=== PATIENT | female | born 1990 | race Caucasian/White ===

== ENCOUNTER 2018-09-24 17:21 | Inpatient (IN) | payer BC ==
[~2018-09-24] VITALS: Ht 165.1 cm; Wt 96.0 kg
[2018-09-24 18:18] VITALS: Ht 165.1 cm; Wt 96.0 kg
[2018-09-24] MEDS ORDERED: HUM100IN4 SQ (18:24)
[2018-09-24] MEDS ORDERED: METF100010 PO (18:24)
[2018-09-24] MEDS ORDERED: LACTATED RINGER'S 1,000 ML IV ONE (19:00)
[2018-09-24] MEDS: LACTATED RINGER'S 1,000 ML IV SCH (19:26)
[2018-09-24] MEDS ORDERED: AL HYDROX/MG HYDROX/SIMETH 30 ML CUP PO PRN (19:30)
[2018-09-24] MEDS ORDERED: MAGNESIUM SULFATE 4 GM/100 ML 100 ML IV ONE (19:30)
[2018-09-24] MEDS ORDERED: ONDANSETRON 4 MG INJ IV PRN (19:30)
--- NOTE | 2018-09-24 19:37 | HP ---
Date/Time of Note Date/Time of Note DATE: 09/24/18 TIME: 19:32 OB - History Hx of Present Chief Complaint: abdominal pain Estimated Due Date: Nov 12, 2018 : 1 Para: 0 Spontaneous : 0 Therapeutic : 0 Care: Good Care Ultrasounds: Normal mid trimester US Obstetrical Complications: Other (Type II DM on metformin and insulin) Medical Complications: Other (Type II DM) Past Family/Social History * Past Medical, Surgical, Family and Obstetric Histories reviewed from chart. OB Admission Exam Physical Exam Cervical Dilatation: 1cm Effacement: 75% Station: -2 Membranes: Intact Heart Rate: 130's Accelerations: Accelerations Present Decelerations: No Decelerations Varibility: Moderate Contractions on Admission: < 5 Minutes Apart Last 72 hourBlood Glucose Bedside Glucose - 72 Hours Test 09/24/18 19:16 Bedside Glucose 88 mg/dL (70-220) OB Assessment/Plan Reason for admission: labor Plan: Other Other plan: Admit IV magnesium sulfate IM betamethasone Perinatology consult RYANNE MOSS MD September 24, 2018 19:37
[2018-09-24] MEDS ORDERED: DEXTROSE 50% 50 ML SYRINGE IV PRN ×2 (20:00)
[2018-09-24] MEDS ORDERED: GLUCAGON 1 MG INJ IM PRN (20:00)
[2018-09-24] MEDS ORDERED: GLUCOSE GEL 15 GRAM TUBE BUCCAL PRN (20:00)
[2018-09-24] MEDS ORDERED: GLUCOSE GEL 15 GRAM TUBE PO PRN ×2 (20:00)
[2018-09-24] MEDS: MAGNESIUM SULFATE 20 GM/500 ML 500 ML IV SCH (20:18)
[2018-09-24] MEDS: BETAMET NA PHOS/AC(6 MG/ML) 2 ML INJ SYG IM SCH (22:35)
[2018-09-24] MEDS: NPH, HUMAN INSULIN ISOPHANE 3ML VIAL SC SCH (23:32)
[2018-09-25] MEDS: ACETAMINOPHEN 325 MG TAB PO PRN ×3 (00:49→17:02)
[2018-09-25] MEDS: PRENATAL VITAMIN PO SCH (08:24)
[2018-09-25] MEDS: MAGNESIUM SULFATE 20 GM/500 ML 500 ML IV SCH ×2 (08:24→19:38)
[2018-09-25] MEDS: DOCUSATE SODIUM 100 MG CAP PO SCH (08:24)
[2018-09-25] MEDS: metFORMIN 500 MG TAB PO SCH ×2 (08:42→17:47)
[2018-09-25] MEDS: LACTATED RINGER'S 1,000 ML IV SCH ×2 (08:46→22:00)
[2018-09-25] MEDS: INSULIN ASPART [NOVOLOG] 3 ML PEN SC PRN ×2 (14:42→19:41)
--- NOTE | 2018-09-25 15:15 | CONS ---
Assessment/Plan Assessment/Plan Assessment/Plan (Daily) Mom is G1,P0, admitted for PTL and started on Magnesium sulfate, given one dose of betamethasone with second dose to be given tonight. Mom explained about problems related to prematurity at 33 weeks. risk for infection,antibiotic therapy ,RDS ,respiratory support needed , AOP , Feeding problems , Poor nippling, jaundice and risk for neurodevelopmental problems and answered all questions.mom has diabetes, on insulin since last 2months , explained about risk for hypoglycemia and physiologic immaturity with IDM babies. I took 25-30min to evaluate the H/P , clinical course on mom, coordinate care with ancilliary services and dictate consult note, thanks for allowing me to take part in the care of this mom , will follow mom and baby as needed. Consultation Date/Type/Reason Admit Date/Time September 24, 2018 at 19:18 Date of Consultation: September 25, 2018 Type of Consult consult requested by Reason for Consultation labor at 33 1/7 weeks. Date/Time of Note DATE: 09/25/18 TIME: 15:02 Constitutional: no complaints, improved Eyes: no complaints ENT: no complaints Respiratory: no complaints Cardiovascular: no complaints Gastrointestinal: no complaints Genitourinary: no complaints Musculoskeletal: no complaints Skin: no complaints Neurologic: no complaints Endocrine: no complaints Lymphatic: no complaints Psychological: no complaints, nl mood/affect Immunologic: no complaints Past Medical History Home Meds Reported Medications Hum Insulin NPH/Reg Insulin Hm (Humulin 70/30 Kwikpen) 100 Unit/1 Ml Insuln.pen, 6 UNIT SQ QPM 09/24/18 Metformin Hcl* (Metformin Hcl*) 1,000 Mg Tablet, 1000 MG PO WITH BREAKFAST DINNE, #60 TAB 09/24/18 Medications Current Medications Lactated Ringer's 1,000 ml @ 75 mls/hr [id number] IV Last administered on 09/25/18at 08:46; Admin Dose 75 MLS/HR; Start 09/24/18 at 19:26 Magnesium Sulfate 500 ml @ 50 mls/hr Q10H IV Last administered on 09/25/18at 08:24; Admin Dose 50 MLS/HR; Start 09/24/18 at 19:26 Betamethasone Acet/Betameth SodPhos (Celestone Soluspan) 12 mg Q24H IM Last administered on 09/24/18at 22:35; Admin Dose 12 MG; Start 09/24/18 at 19:30; Stop 09/25/18 at 19:31 Prenat Multivit/ [place]/Iron/Folic Ac () 1 tab DAILY PO Last administered on 09/25/18at 08:24; Admin Dose 1 TAB; Start 09/25/18 at 09:00 Docusate Sodium (Colace) 100 mg DAILY PO Last administered on 09/25/18at 08:24; Admin Dose 100 MG; Start 09/25/18 at 09:00 Acetaminophen (Tylenol Tab) 650 mg Q4H PRN PO .PAIN OR TEMP Last administered on 09/25/18at 10:59; Admin Dose 650 MG; Start 09/24/18 at 19:30 Al Hydrox/Mg Hydrox/Simethicone (Mag-Al Plus) 30 ml Q6H PRN PO .GI UPSET; Start 09/24/18 at 19:30 Ondansetron HCl (Zofran Inj) 4 mg Q6H PRN IV NAUSEA/VOMITING; Start 09/24/18 at 19:30 Metformin HCl (Glucophage) 1,000 mg WITH BREAKFAST PO Last administered on 09/25/18at 08:42; Admin Dose 1,000 MG; Start 09/25/18 at 07:35 Metformin HCl (Glucophage) 1,000 mg WITH DINNER PO ; Start 09/25/18 at 17:35 Insulin Human NPH (Humulin N) 6 unit HS SC Last administered on 09/24/18at 23:32; Admin Dose 6 UNIT; Start 09/24/18 at 21:00 Miscellaneous Information 1 ea NOTE XX ; Start 09/24/18 at 20:00 Glucose (Glutose) 15 gm Q15M PRN PO DECREASED GLUCOSE; Start 09/24/18 at 20:00 Glucose (Glutose) 22.5 gm Q15M PRN PO DECREASED GLUCOSE; Start 09/24/18 at 20:00 Dextrose (D50w Syringe) 25 ml Q15M PRN IV DECREASED GLUCOSE; Start 09/24/18 at 20:00 Dextrose (D50w Syringe) 50 ml Q15M PRN IV DECREASED GLUCOSE; Start 09/24/18 at 20:00 Glucagon (Glucagen) 1 mg Q15M PRN IM DECREASED GLUCOSE; Start 09/24/18 at 20:00 Glucose (Glutose) 15 gm Q15M PRN BUCCAL DECREASED GLUCOSE; Start 09/24/18 at 20:00 Insulin Aspart (Novolog Insulin Pen) 161-18,0=6 units 181-200... 2 HOURS AFTER MEALS PRN SC ELEVATED GLUCOSE Last administered on 09/25/18at 14:42; Admin Dose 2 UNIT; Start 09/25/18 at 13:30 Allergies: Coded Allergies: No Known Allergy (Unverified , 09/24/18) Social History Smoking Status: Never smoker Exam/Review of Systems Exam Vitals Intake and Output 09/24/18 09/24/18 09/25/18 1515:00 23:00 07:00 IntakeIntake Total 550 ml 1240 ml OutputOutput Total 1350 ml BalanceBalance 550 ml -110 ml Results Result Diagram: 09/24/18192209/24/181922 Results 24hrs Laboratory Tests Test 09/24/18 19:16 09/24/18 19:23 09/24/18 23:23 09/25/18 00:57 Bedside Glucose 88 123 White Blood Count 6.7 Red Blood Count 4.12 L Hemoglobin 12.0 Hematocrit 36.3 L Mean Corpuscular 88.1 Volume Mean Corpuscular 29.1 Hemoglobin Mean Corpuscular 33.1 Hemoglobin Concent Red Cell 13.6 Distribution Width Platelet Count 149 Mean Platelet Volume 14.0 H Immature 0.700 H Granulocytes % Neutrophils % 64.6 Lymphocytes % 29.4 Monocytes % 4.9 Eosinophils % 0.1 Basophils % 0.3 Nucleated Red Blood 0.0 Cells % Immature 0.050 H Granulocytes # Neutrophils # 4.3 Lymphocytes # 2.0 Monocytes # 0.3 Eosinophils # 0.0 Basophils # 0.0 Nucleated Red Blood 0.0 Cells # Prothrombin Time 12.6 Prothrombin Time 1.0 Ratio INR International 0.93 Normalized Ratio Activated 27.6 Partial Thromboplast Time Urine Color YELLOW Urine Clarity CLEAR Urine pH 6.0 Urine Specific 1.024 [place] Urine Ketones 1+ H Urine Nitrite NEGATIVE Urine Bilirubin NEGATIVE Urine Urobilinogen NEGATIVE Urine Leukocyte NEGATIVE Esterase Urine Hemoglobin NEGATIVE Urine Glucose 1+ H Urine Total Protein NEGATIVE Sodium Level 137 Potassium Level 3.9 Chloride Level 108 Carbon Dioxide Level 18 L Anion Gap 11 Blood Urea Nitrogen 9 Creatinine 0.47 Est Glomerular > 60 Filtrat Rate mL/min Glucose Level 84 Calcium Level 9.6 Total Bilirubin 0.5 Direct Bilirubin 0.00 Indirect Bilirubin 0.5 Aspartate Amino 30 Transf (AST/SGOT) Alanine 42 Aminotransferase (AL T/SGPT) Alkaline Phosphatase 151 H Total Protein 7.5 Albumin 3.8 Globulin 3.70 H Albumin/Globulin 1.02 Ratio Magnesium Level 4.5 H Test 09/25/18 05:39 09/25/18 08:25 09/25/18 10:42 09/25/18 12:07 Magnesium Level 4.5 H 4.9 H Bedside Glucose 135 149 Test 09/25/18 14:35 Bedside Glucose 129 Medications Medication Current Medications Lactated Ringer's 1,000 ml @ 75 mls/hr [id number] IV Last administered on 09/25/18 08:46; Admin Dose 75 MLS/HR; Start 09/24/18 at 19:26 Magnesium Sulfate 500 ml @ 50 mls/hr Q10H IV Last administered on 09/25/18 08:24; Admin Dose 50 MLS/HR; Start 09/24/18 at 19:26 Betamethasone Acet/Betameth SodPhos (Celestone Soluspan) 12 mg Q24H IM Last administered on 09/24/18 22:35; Admin Dose 12 MG; Start 09/24/18 at 19:30; Stop 09/25/18 at 19:31 Prenat Multivit/ Skates Operator/Iron/Folic Ac () 1 tab DAILY PO Last administered on 09/25/18 08:24; Admin Dose 1 TAB; Start 09/25/18 at 09:00 Docusate Sodium (Colace) 100 mg DAILY PO Last administered on 09/25/18 08:24; Admin Dose 100 MG; Start 09/25/18 at 09:00 Acetaminophen (Tylenol Tab) 650 mg Q4H PRN PO .PAIN OR TEMP Last administered on 09/25/18 10:59; Admin Dose 650 MG; Start 09/24/18 at 19:30 Al Hydrox/Mg Hydrox/Simethicone (Mag-Al Plus) 30 ml Q6H PRN PO .GI UPSET; Start 09/24/18 at 19:30 Ondansetron HCl (Zofran Inj) 4 mg Q6H PRN IV NAUSEA/VOMITING; Start 09/24/18 at 19:30 Metformin HCl (Glucophage) 1,000 mg WITH BREAKFAST PO Last administered on 09/25/18at 08:42; Admin Dose 1,000 MG; Start 09/25/18 at 07:35 Metformin HCl (Glucophage) 1,000 mg WITH DINNER PO ; Start 09/25/18 at 17:35 Insulin Human NPH (Humulin N) 6 unit HS SC Last administered on 09/24/18at 23:32; Admin Dose 6 UNIT; Start 09/24/18 at 21:00 Miscellaneous Information 1 ea NOTE XX ; Start 09/24/18 at 20:00 Glucose (Glutose) 15 gm Q15M PRN PO DECREASED GLUCOSE; Start 09/24/18 at 20:00 Glucose (Glutose) 22.5 gm Q15M PRN PO DECREASED GLUCOSE; Start 09/24/18 at 20:00 Dextrose (D50w Syringe) 25 ml Q15M PRN IV DECREASED GLUCOSE; Start 09/24/18 at 20:00 Dextrose (D50w Syringe) 50 ml Q15M PRN IV DECREASED GLUCOSE; Start 09/24/18 at 20:00 Glucagon (Glucagen) 1 mg Q15M PRN IM DECREASED GLUCOSE; Start 09/24/18 at 20:00 Glucose (Glutose) 15 gm Q15M PRN BUCCAL DECREASED GLUCOSE; Start 09/24/18 at 20:00 Insulin Aspart (Novolog Insulin Pen) 161-18,0=6 units 181-200... 2 HOURS AFTER MEALS PRN SC ELEVATED GLUCOSE Last administered on 09/25/18at 14:42; Admin Dose 2 UNIT; Start 09/25/18 at 13:30 KERI ROSS MD September 25, 2018 15:15
--- NOTE | 2018-09-25 18:54 | RADRPT ---
Vent Rate: 80 bpm RR Interval: 0 msec FL Interval: 134 msec QRS Duration: 82 msec QT Interval: 384 msec QTC Interval: 442 msec P-R-T [place]: -3 - 93 - 22 degrees Normal sinus rhythm Rightward axis Borderline ECG Electronically Signed By: Dawit Cornejo
[2018-09-25] MEDS: NPH, HUMAN INSULIN ISOPHANE 3ML VIAL SC SCH (22:11)
[2018-09-25] MEDS: BETAMET NA PHOS/AC(6 MG/ML) 2 ML INJ SYG IM SCH (22:15)
--- NOTE | 2018-09-25 22:56 | QN ---
Documentation Comment 27-year-old 1 para 0 at 33 weeks and 1 day of gestation with estimated date of delivery November 12, 2018 admitted for labor Patient is receiving magnesium sulfate for prevention of labor and betamethasone for lung maturity Patient has history of type 2 diabetes on insulin and metformin Vital signs stable heart rate tracing category 1 [place] none Hematology - 72 Hrs Test 09/24/18 19:23 Hematocrit 36.3 % (37.0-47.0) L Hemoglobin 12.0 g/dl (12.0-16.0) Mean Corpuscular Hemoglobin 29.1 pg (29.0-33.0) Mean Corpuscular Hemoglobin Concent 33.1 g/dl (32.0-37.0) Mean Corpuscular Volume 88.1 fl (82.0-101.0) Mean Platelet Volume 14.0 fl (7.4-10.4) H Platelet Count 149 10^3/UL (140-415) Red Blood Count 4.12 10^6/ul (4.20-5.40) L Red Cell Distribution Width 13.6 % (11.5-14.5) White Blood Count 6.7 10^3/ul (4.8-10.8) Chemistry Test 09/24/18 19:16 09/24/18 19:23 09/24/18 23:23 09/25/18 00:57 Bedside 88 123 Glucose mg/dL (70-220) mg/dL (70-220) Sodium Level 137 mmol/L (135-14 4) Potassium 3.9 Level mmol/L (3.5-5. 1) Chloride Level 108 mmol/L (97-110 ) Carbon Dioxide 18 Level mmol/L (21-31) L Anion Gap 11 (5-13) Blood Urea 9 mg/dl Nitrogen (7-20) Creatinine 0.47 mg/dl (0.44-1. 00) Est Glomerular > 60 Filtrat mL/min (>60) Rate mL/min Glucose Level 84 mg/dl (70-220) Calcium Level 9.6 mg/dl (8.4-10. 2) Total 0.5 Bilirubin mg/dl (0.2-1.3 ) Direct 0.00 Bilirubin mg/dl (0.00-0. 20) Indirect 0.5 Bilirubin mg/dl (0-1.1) Aspartate Amino 30 Transf (AST/SGO IU/L (15-46) T) Alanine 42 Aminotransferas IU/L (13-69) e (ALT/SGPT) Alkaline 151 Phosphatase IU/L (42-121) H Total Protein 7.5 g/dl (6.1-8.1) Albumin 3.8 g/dl (3.3-4.9) Globulin 3.70 g/dl (1.3-3.2) H Albumin/Globuli 1.02 n Ratio Magnesium 4.5 Level mg/dl (1.7-2.5 ) H Test 09/25/18 05:39 09/25/18 08:25 09/25/18 10:42 09/25/18 12:07 Magnesium 4.5 4.9 Level mg/dl (1.7-2.5) mg/dl (1.7-2.5 H ) H Bedside 135 149 Glucose mg/dL (70-220) mg/dL (70-220) Test 09/25/18 14:35 09/25/18 17:49 09/25/18 19:34 09/25/18 22:05 Bedside 129 155 148 Glucose mg/dL (70-220) mg/dL (70-220) mg/dL (70-220) Magnesium 4.7 Level mg/dl (1.7-2.5 ) H PROCEDURE: Biophysical profile CLINICAL INDICATION: distress. Fall. Pain. TECHNIQUE: Color and taylor-scale ultrasound images of an intrauterine gestation were obtained. COMPARISON: None FINDINGS: position: Cephalic. heart rate: 146 bpm. Placenta location: Anterior with a grade of 1. Previa: None. Abruption: None. Cervix: Closed, measuring 1.0 cm in length. ABDULKADIR: 18.0 cm. movement 2/2. tone 2/2. breathing movement 2/2. Qualitative AFV 2/2 Total biophysical profile 12/10 IMPRESSION: 12/10 biophysical profile. Short cervix measuring 1.0 cm in length. RPTAT: AA .Giovani Ulloa MD, Date Time Electronically viewed and signed by .Giovani Ulloa MD, MD on 09/24/2018 19:57 .P/ CC: RYANNE MOSS MD [phone] PROCEDURE: US OB CLINICAL INDICATION: . Evaluate size and dates. Fall. Pain. TECHNIQUE: Multiple transabdominal sonographic images of the pelvis and gravid uterus were obtained. The images were reviewed on a PACS workstation. COMPARISON: September 22, 2018. FINDINGS: Cervix: Obscured. Gestation: Single live intrauterine gestation. Cardiac activity: 146 beats per minute. Presentation: Cephalic. Placenta: Location: Anterior. Appearance: No abruption. Measurements: BPD = not measured due to head engagement in the lower uterine segment. HC = not measured due to head engagement in the lower uterine segment. AC = 32.1 cm, 36 weeks 0 days FL = 6.4 cm, 33 weeks 0 days Gestational Age: AUA estimated gestational age: 34 weeks 4 days LMP estimated gestational age: 33 weeks 0 days AUA estimated date of delivery: November 01, 2018 The EFW = 2597 g, 94.4 %ile based on LMP age. IMPRESSION: 1. Single live intrauterine gestation of 34 weeks 4 days by ultrasound criteria. 2. Estimated date of delivery of November 01, 2018. 3. Head measurements not performed due to head engagement in the lower uterine segment. RPTAT: AA .Giovani Ulloa MD, MD Date Time Electronically viewed and signed by .Giovani Ulloa MD, MD on 09/24/2018 19:55 .P/ CC: RYANNE MOSS MD [phone] Assessment and plan Continue with present management Perinatology consultation FAREED WILLIAMSON MD September 25, 2018 22:56
[2018-09-26] MEDS: MAGNESIUM SULFATE 20 GM/500 ML 500 ML IV SCH (06:20)
[2018-09-26] MEDS: DOCUSATE SODIUM 100 MG CAP PO SCH (09:06)
[2018-09-26] MEDS: PRENATAL VITAMIN PO SCH (09:06)
[2018-09-26] MEDS: metFORMIN 500 MG TAB PO SCH ×2 (09:39→17:13)
[2018-09-26] MEDS: LACTATED RINGER'S 1,000 ML IV SCH ×2 (10:48→21:04)
[2018-09-26] MEDS: INSULIN ASPART [NOVOLOG] 3 ML PEN SC PRN ×3 (12:00→19:33)
--- NOTE | 2018-09-26 17:07 | QN ---
Documentation Comment No complaint Afebrile VSS Strip Reactive D/C magnesium sulfate Monitor for contractions. RYANNE MOSS MD September 26, 2018 17:06
[2018-09-26] MEDS: NPH, HUMAN INSULIN ISOPHANE 3ML VIAL SC SCH (21:53)
[2018-09-27] MEDS: LACTATED RINGER'S 1,000 ML IV SCH (04:16)
[2018-09-27] MEDS: metFORMIN 500 MG TAB PO SCH (07:48)
[2018-09-27] MEDS: PRENATAL VITAMIN PO SCH (07:48)
[2018-09-27] MEDS: DOCUSATE SODIUM 100 MG CAP PO SCH (07:48)
[2018-09-27] MEDS: INSULIN ASPART [NOVOLOG] 3 ML PEN SC PRN (09:50)
[2018-09-27] MEDS ORDERED: NIFEdipine 10 MG CAP PO SCH (12:00)
--- NOTE | 2018-09-27 14:29 | DS ---
Date/Time of Note Date/Time of Note DATE: 09/27/18 TIME: 14:28 Obstetrical Discharge Record Final Diagnosis Final Diagnosis: not delivered Other Final Diagnosis Threatened labor Complications Tocolytics: Magnesium Sulfate Condition on Discharge Physical Assessment Voiding: Yes Bowel Movement: Yes Calf Tenderness: No Patient Condition: Stable RYANNE MOSS MD September 27, 2018 14:29
== END 2018-09-27 15:10 | disposition home or self-care (01) | DRG 832 ==
LOC: OBT 17:21 → L-D 17:22 → OBT 19:18 → L-D 19:18 → PP1 21:13 → L-D 09-25 03:37 → PP1 09-27 10:30
PROVIDERS: ADMIT Obstetrics & Gynecology; ATTEND Obstetrics & Gynecology
PROC: 4A1HXCZ Monitoring of Products of Conception, Cardiac Rate, External Approach (ICD-10-PCS; principal; 2018-09-24)
DX: O60.03 Preterm labor without delivery, third trimester (principal); O24.113 Pre-existing type 2 diabetes mellitus, in pregnancy, third trimester; Z3A.33 33 weeks gestation of pregnancy; E11.9 Type 2 diabetes mellitus without complications; Z79.4 Long term (current) use of insulin
CPT/HCPCS: 76815; 76817; 76818; 80053; 81003; 82962; 83735; 85025; 85610; 85730; 86592; 86850; 86900; 86901; 93005; G0463; J0702; J1815; J3475; J7120

== ENCOUNTER 2018-10-06 05:49 | Inpatient (IN) | payer BC ==
[~2018-10-06] VITALS: Ht 165.1 cm; Wt 97.1 kg
[~2018-10-06 05:49] MED LIST: HUM100IN4 SQ; METF100010 PO
[2018-10-06 05:52] VITALS: Ht 165.1 cm; Wt 97.1 kg
[2018-10-06] MEDS ORDERED: PREN1TAB13 PO (06:09)
[2018-10-06] MEDS ORDERED: PRO20 PO (06:09)
--- NOTE | 2018-10-06 06:45 | TRIAGE ---
OB Triage Datetime Report Generated by CPN: 10/06/2018 06:44 Datetime: 10/06/2018 06:30 Vaginal Exam Dilatation (cms): 2.0 Effacement (%): 80 Station: -2 Exam By: Torres WALDEN Membrane Status: Intact Membranes Ruptured Date/Time: 10/06/2018 03:30 Membranes Rupture Method: Spontaneous Amniotic Fluid Color: Clear Amniotic Fluid Amount: Large Amniotic Fluid Odor: Normal Vaginal Bleeding: None Pool: Positive Nitrazine: Positive Cervix, Consistency: Soft Cervix, Position: Posterior Datetime: 10/06/2018 06:02 Stage of : OB Triage Maternal Assessment Level of Consciousness: Fully Conscious DTR's/Clonus: DTRs 2+; No Clonus Headache: Denies Blurred Vision: No Respiratory Effort: Unlabored; Regular Rhythm; Equal Expansion Breath Sounds, Left: Clear and Equal Breath Sounds, Right: Clear and Equal Nausea/Vomiting: Denies RUQ Epigastric Pain: Denies Lower Extremities Edema: None Degree: None Upper Extremities Edema: None Degree: None Facial Edema: None Temperature Route: Oral Fall Risk Assessment History of Falling: (0) No Secondary Diagnosis: (0) No Ambulatory Aid: (0) Bedrest/Nurse Assist IV Therapy: (0) No Gait: (0) Normal/Bedrest/Immobile Mental Status: (0) Oriented to Own Ability Fall Score: 0 Fall Risk Score Definition: No Risk: No action required Pain Assessment Pain Scale: 8 Pain Presence: Intermittent Pain Type: Contraction Pain Location: Abdomen Pain Relief Measures: Comfort Measures Datetime: 10/06/2018 06:00 EGA: 34.5 Monitor Mode: External Contraction Comments: APPLIED Monitor Mode: External US Comments: APPLIED Datetime: 10/06/2018 05:54 Time of Arrival: 10/06/2018 05:45 EGA: 34.5 Arrived By: Wheelchair Arrived From: Home Chief Complaint: CONTRACTIONS LEAKING @0330 Movement: Present Contractions: Regular Time Contractions Began: 10/06/2018 03:30 Contractions: 3-6 Rupture of Membranes: Ruptured Vaginal Bleeding: None Vaginal Discharge: Present Recent Sexual Intercouse: Denies Abdominal Trauma: Not Applicable Patient Complaints: Contractions; Other Time Provider Notified: 10/06/2018 06:31 Provider Notified: DR. MOSS Initial Plan: EFM, CALL OB Datetime: 09/27/2018 13:58 Labor Evaluation Frequency: irregular Monitor Mode: External Quality: Mild Contraction Comments: dr. moss aware of uc's and had rvwd strip. pt. denies uc's at this time, v e unchanged, and pt. on ptl precautions Heart Rate FHR Baseline Rate: 135 Monitor Mode: External US Variability: Moderate 6-25 bpm Accelerations: 15X15 Decelerations: None Datetime: 09/27/2018 13:44 Maternal Assessment Level of Consciousness: Fully Conscious Headache: Denies Blurred Vision: No Respiratory Effort: Unlabored Nausea/Vomiting: Denies Exam By: dr. moss Datetime: 09/27/2018 13:23 Resting Tone Dawn: Relaxed Datetime: 09/27/2018 12:50 Maternal Assessment Level of Consciousness: Fully Conscious Headache: Denies Blurred Vision: No Respiratory Effort: Unlabored Nausea/Vomiting: Denies RUQ Epigastric Pain: Denies Resting Tone Dawn: Relaxed Contraction Comments: pt. states decrease in frequency of uc's Pain Presence: None/Denies Datetime: 09/27/2018 11:56 Stage of : Antepartum Maternal Assessment Level of Consciousness: Fully Conscious Headache: Denies Nausea/Vomiting: Denies RUQ Epigastric Pain: Denies Temperature Route: Oral Quality: Mild Resting Tone Dawn: Relaxed Contraction Comments: order rcvd. for procardia Pain Assessment Pain Scale: 1 Pain Presence: Intermittent Pain Type: Contraction Pain Location: Abdomen; Back Pain Relief Measures: Comfort Measures Membrane Status: Intact Vaginal Bleeding: None Datetime: 09/27/2018 10:21 Monitor Mode: External Quality: Mild Resting Tone Dawn: Relaxed Datetime: 09/27/2018 10:20 Labor Evaluation Frequency: 2-7 Monitor Mode: External Duration (sec)2399: 60-120 Quality: Mild Pattern: Normal: <= 5 Contractions in 10 Minutes Resting Tone Dawn: Relaxed Heart Rate FHR Baseline Rate: 140 Monitor Mode: External US FHR Baseline Changes: No Baseline Change Variability: Moderate 6-25 bpm Accelerations: 15X15 Decelerations: None Category: Category I Pain Presence: None/Denies Pain Assessment Comments: Pt denies feeling any pain or pressure with UC Datetime: 09/27/2018 10:17 Pain Assessment Pain Scale: 1 Pain Presence: Intermittent Pain Type: Contraction Pain Location: Abdomen; Back Pain Relief Measures: Comfort Measures Datetime: 09/27/2018 09:30 Monitor Mode: External Quality: Mild Pattern: Normal: <= 5 Contractions in 10 Minutes Resting Tone Dawn: Relaxed Heart Rate FHR Baseline Rate: 140 Monitor Mode: External US FHR Baseline Changes: No Baseline Change Variability: Moderate 6-25 bpm Accelerations: 15X15 Decelerations: None Category: Category I Pain Assessment Comments: Pt declines feeling any pain or pressure with UC Datetime: 09/27/2018 08:30 Labor Evaluation Frequency: 2-7 Monitor Mode: External Duration (sec)2399: 30-80 Quality: Mild Pattern: Normal: <= 5 Contractions in 10 Minutes Resting Tone Dawn: Relaxed Heart Rate FHR Baseline Rate: 135 Monitor Mode: External US FHR Baseline Changes: No Baseline Change Variability: Moderate 6-25 bpm Accelerations: 15X15 Decelerations: None Category: Category I Pain Presence: None/Denies Pain Assessment Comments: Pt denies feeling any pain or pressure with UC Datetime: 09/27/2018 07:40 Assessment Type: Ongoing Assessment Maternal Assessment Level of Consciousness: Fully Conscious DTR's/Clonus: DTRs 2+; No Clonus Headache: Denies Blurred Vision: No Respiratory Effort: Unlabored; Regular Rhythm; Equal Expansion Breath Sounds, Left: Clear and Equal Breath Sounds, Right: Clear and Equal Nausea/Vomiting: Denies RUQ Epigastric Pain: Denies Lower Extremities Edema: Bilateral Lower Extremities Degree: Trace Upper Extremities Edema: None Degree: None Facial Edema: None Fall Risk Assessment History of Falling: (0) No Secondary Diagnosis: (0) No Ambulatory Aid: (0) Bedrest/Nurse Assist IV Therapy: (20) Yes Gait: (0) Normal/Bedrest/Immobile Mental Status: (0) Oriented to Own Ability Fall Score: 20 Fall Risk Score Definition: No Risk: No action required Labor Evaluation Frequency: 2-5 Monitor Mode: External Duration (sec)2399: 60-80 Quality: Mild Pattern: Normal: <= 5 Contractions in 10 Minutes Resting Tone Dawn: Relaxed Heart Rate FHR Baseline Rate: 130 Monitor Mode: External US FHR Baseline Changes: No Baseline Change Variability: Moderate 6-25 bpm Accelerations: 15X15 Decelerations: None Category: Category I Pain Presence: None/Denies Pain Assessment Comments: Pt denies feeling any pain or pressure with UC Datetime: 09/27/2018 07:00 Stage of : Antepartum Labor Evaluation Frequency: irregular Monitor Mode: External Quality: Mild Pattern: Normal: <= 5 Contractions in 10 Minutes Resting Tone Dawn: Relaxed Heart Rate FHR Baseline Rate: 135 Monitor Mode: External US Variability: Moderate 6-25 bpm Accelerations: 15X15 Decelerations: None Category: Category I Datetime: 09/27/2018 06:48 Monitor Mode: External Monitor Mode: External US Datetime: 09/27/2018 06:00 Stage of : Antepartum Labor Evaluation Frequency: irregular Monitor Mode: External Quality: Mild Pattern: Normal: <= 5 Contractions in 10 Minutes Resting Tone Dawn: Relaxed Heart Rate FHR Baseline Rate: 135 Monitor Mode: External US Variability: Moderate 6-25 bpm Accelerations: 15X15 Decelerations: None Category: Category I Datetime: 09/27/2018 05:00 Stage of : Antepartum Labor Evaluation Frequency: irregular Monitor Mode: External Quality: Mild Pattern: Normal: <= 5 Contractions in 10 Minutes Resting Tone Dawn: Relaxed Heart Rate FHR Baseline Rate: 130 Monitor Mode: External US Variability: Moderate 6-25 bpm Accelerations: 15X15 Decelerations: None Category: Category I Comments: occassional loss of contact Datetime: 09/27/2018 04:50 Monitor Mode: External Monitor Mode: External US Datetime: 09/27/2018 04:36 Monitor Mode: External Monitor Mode: External US Datetime: 09/27/2018 04:00 Stage of : Antepartum Labor Evaluation Frequency: irregular Monitor Mode: External Quality: Mild Pattern: Normal: <= 5 Contractions in 10 Minutes Resting Tone Dawn: Relaxed Heart Rate FHR Baseline Rate: 140 Monitor Mode: External US Variability: Moderate 6-25 bpm Accelerations: 15X15 Decelerations: None Category: Category I Datetime: 09/27/2018 03:00 Stage of : Antepartum Labor Evaluation Frequency: irregular Monitor Mode: External Quality: Mild Pattern: Normal: <= 5 Contractions in 10 Minutes Resting Tone Dawn: Relaxed Contraction Comments: occassional loss of contact Heart Rate FHR Baseline Rate: 140 Monitor Mode: External US Variability: Moderate 6-25 bpm Accelerations: 15X15 Decelerations: None Category: Category I Datetime: 09/27/2018 02:56 Monitor Mode: External Monitor Mode: External US Datetime: 09/27/2018 02:23 Temperature Route: Oral Monitor Mode: External Monitor Mode: External US Datetime: 09/27/2018 02:00 Stage of : Antepartum Labor Evaluation Frequency: irregular Monitor Mode: External Quality: Mild Pattern: Normal: <= 5 Contractions in 10 Minutes Resting Tone Dawn: Relaxed Heart Rate FHR Baseline Rate: 140 Monitor Mode: External US Variability: Moderate 6-25 bpm Accelerations: 15X15 Decelerations: None Category: Category I Datetime: 09/27/2018 01:00 Stage of : Antepartum Labor Evaluation Frequency: irregular Monitor Mode: External Quality: Mild Pattern: Normal: <= 5 Contractions in 10 Minutes Resting Tone Dawn: Relaxed Heart Rate FHR Baseline Rate: 140 Monitor Mode: External US Variability: Moderate 6-25 bpm Accelerations: 15X15 Decelerations: Variable Category: Category II Datetime: 09/27/2018 00:00 Stage of : Antepartum Labor Evaluation Frequency: irregular Monitor Mode: External Quality: Mild Pattern: Normal: <= 5 Contractions in 10 Minutes Resting Tone Dawn: Relaxed Heart Rate FHR Baseline Rate: 140 Monitor Mode: External US Variability: Moderate 6-25 bpm Accelerations: 15X15 Decelerations: None Category: Category I Datetime: 09/26/2018 23:00 Stage of : Antepartum Labor Evaluation Frequency: irregular Monitor Mode: External Quality: Mild Pattern: Normal: <= 5 Contractions in 10 Minutes Resting Tone Dawn: Relaxed Heart Rate FHR Baseline Rate: 135 Monitor Mode: External US Variability: Moderate 6-25 bpm Accelerations: 15X15 Decelerations: None Category: Category I Datetime: 09/26/2018 22:46 Stage of : Antepartum Temperature Route: Oral Datetime: 09/26/2018 22:00 Stage of : Antepartum Labor Evaluation Frequency: irregular Monitor Mode: External Quality: Mild Pattern: Normal: <= 5 Contractions in 10 Minutes Resting Tone Dawn: Relaxed Heart Rate FHR Baseline Rate: 145 Monitor Mode: External US Variability: Moderate 6-25 bpm Accelerations: 10X10 Decelerations: None Category: Category I Datetime: 09/26/2018 21:49 Bedside Blood Glucose: 136 Datetime: 09/26/2018 21:00 Monitor Mode: External Monitor Mode: External US Datetime: 09/26/2018 20:30 Stage of : Antepartum Labor Evaluation Frequency: 0 Monitor Mode: External Pattern: Normal: <= 5 Contractions in 10 Minutes Resting Tone Dawn: Relaxed Heart Rate FHR Baseline Rate: 145 Monitor Mode: External US Variability: Moderate 6-25 bpm Accelerations: None Decelerations: None Category: Category I Comments: occassional loss of contact Pain Presence: None/Denies Datetime: 09/26/2018 19:50 Stage of : Antepartum Labor Evaluation Frequency: 0 Monitor Mode: External Pattern: Normal: <= 5 Contractions in 10 Minutes Resting Tone Dawn: Relaxed Heart Rate FHR Baseline Rate: 140 Monitor Mode: External US Variability: Moderate 6-25 bpm Accelerations: 15X15 Decelerations: None Category: Category I Comments: occassional loss of contact Pain Presence: None/Denies Datetime: 09/26/2018 19:37 Stage of : Antepartum Temperature Route: Oral Datetime: 09/26/2018 19:25 Stage of : Antepartum Bedside Blood Glucose: 209 (Annotations: repeated blood glucose: 209. @1933: Novolog sliding scale 10 units given 2hrs pp ) Datetime: 09/26/2018 19:20 Stage of : Antepartum Datetime: 09/26/2018 19:00 Monitor Mode: External Resting Tone Dawn: Relaxed Heart Rate FHR Baseline Rate: 135 Monitor Mode: External US FHR Baseline Changes: No Baseline Change Variability: Moderate 6-25 bpm Accelerations: 15X15 Decelerations: None Category: Category I Pain Presence: None/Denies Datetime: 09/26/2018 18:00 Monitor Mode: External Resting Tone Dawn: Relaxed Heart Rate FHR Baseline Rate: 135 Monitor Mode: External US FHR Baseline Changes: No Baseline Change Variability: Minimal - Undetectable to <=5 bpm Accelerations: 15X15 Decelerations: None Category: Category II Pain Presence: None/Denies Datetime: 09/26/2018 17:00 Monitor Mode: External Resting Tone Dawn: Relaxed Heart Rate FHR Baseline Rate: 130 Monitor Mode: External US FHR Baseline Changes: No Baseline Change Variability: Minimal - Undetectable to <=5 bpm Accelerations: 15X15 Decelerations: None Category: Category II Pain Presence: None/Denies Datetime: 09/26/2018 16:00 Monitor Mode: External Resting Tone Dawn: Relaxed Heart Rate FHR Baseline Rate: 120 Monitor Mode: External US FHR Baseline Changes: No Baseline Change Variability: Moderate 6-25 bpm Accelerations: 15X15 Decelerations: None Category: Category I Pain Presence: None/Denies Datetime: 09/26/2018 15:00 Monitor Mode: External Resting Tone Dawn: Relaxed Heart Rate FHR Baseline Rate: 120 Monitor Mode: External US FHR Baseline Changes: No Baseline Change Variability: Minimal - Undetectable to <=5 bpm Accelerations: 15X15 Decelerations: None Category: Category II Pain Presence: None/Denies Datetime: 09/26/2018 14:01 DTR's/Clonus: DTRs 2+ Monitor Mode: External Resting Tone Dawn: Relaxed Heart Rate FHR Baseline Rate: 135 Monitor Mode: External US FHR Baseline Changes: No Baseline Change Variability: Moderate 6-25 bpm Accelerations: 15X15 Decelerations: None Category: Category I Pain Presence: None/Denies Datetime: 09/26/2018 13:07 Monitor Mode: External Resting Tone Dawn: Relaxed Heart Rate FHR Baseline Rate: 135 Monitor Mode: External US FHR Baseline Changes: No Baseline Change Variability: Minimal - Undetectable to <=5 bpm Accelerations: 15X15 Decelerations: None Category: Category II Pain Presence: None/Denies Datetime: 09/26/2018 12:02 DTR's/Clonus: DTRs 2+ Breath Sounds, Left: Clear and Equal Breath Sounds, Right: Clear and Equal Labor Evaluation Frequency: x3 UC noted this hour Monitor Mode: External Duration (sec)2399: 60-80 Quality: Mild Pattern: Normal: <= 5 Contractions in 10 Minutes Resting Tone Dawn: Relaxed Heart Rate FHR Baseline Rate: 130 Monitor Mode: External US FHR Baseline Changes: No Baseline Change Variability: Minimal - Undetectable to <=5 bpm Accelerations: 15X15 Decelerations: None Category: Category II Pain Presence: None/Denies Datetime: 09/26/2018 11:00 Monitor Mode: External Resting Tone Dawn: Relaxed Heart Rate FHR Baseline Rate: 130 Monitor Mode: External US FHR Baseline Changes: No Baseline Change Variability: Minimal - Undetectable to <=5 bpm Accelerations: 15X15 Decelerations: None Category: Category II Pain Presence: None/Denies Datetime: 09/26/2018 10:00 DTR's/Clonus: DTRs 2+ Labor Evaluation Frequency: x2 UC noted this hour Monitor Mode: External Duration (sec)2399: 60-90 Quality: Mild Pattern: Normal: <= 5 Contractions in 10 Minutes Resting Tone Dawn: Relaxed Heart Rate FHR Baseline Rate: 130 Monitor Mode: External US FHR Baseline Changes: No Baseline Change Variability: Minimal - Undetectable to <=5 bpm Accelerations: 15X15 Decelerations: None Category: Category II Pain Presence: None/Denies Datetime: 09/26/2018 09:01 Labor Evaluation Frequency: X1 UC noted this hour Monitor Mode: External Duration (sec)2399: 90 Resting Tone Dawn: Relaxed Heart Rate FHR Baseline Rate: 125 Monitor Mode: External US FHR Baseline Changes: No Baseline Change Variability: Minimal - Undetectable to <=5 bpm Accelerations: 15X15 Decelerations: None Category: Category II Pain Presence: None/Denies Datetime: 09/26/2018 08:01 Assessment Type: Ongoing Assessment Maternal Assessment Level of Consciousness: Fully Conscious DTR's/Clonus: DTRs 2+; No Clonus Headache: Denies Blurred Vision: No Respiratory Effort: Unlabored; Regular Rhythm; Equal Expansion Breath Sounds, Left: Clear and Equal Breath Sounds, Right: Clear and Equal Nausea/Vomiting: Denies RUQ Epigastric Pain: Denies Lower Extremities Edema: None Degree: None Upper Extremities Edema: None Degree: None Facial Edema: None Fall Risk Assessment History of Falling: (0) No Secondary Diagnosis: (0) No Ambulatory Aid: (0) Bedrest/Nurse Assist IV Therapy: (20) Yes Gait: (0) Normal/Bedrest/Immobile Mental Status: (0) Oriented to Own Ability Fall Score: 20 Fall Risk Score Definition: No Risk: No action required Monitor Mode: External Resting Tone Dawn: Relaxed Heart Rate FHR Baseline Rate: 125 Monitor Mode: External US FHR Baseline Changes: No Baseline Change Variability: Minimal - Undetectable to <=5 bpm Accelerations: 15X15 Decelerations: None Category: Category II Pain Presence: None/Denies Datetime: 09/26/2018 07:00 Labor Evaluation Frequency: 0 Monitor Mode: External Pattern: Normal: <= 5 Contractions in 10 Minutes Resting Tone Dawn: Relaxed Heart Rate FHR Baseline Rate: 125 Monitor Mode: External US FHR Baseline Changes: No Baseline Change Variability: Minimal - Undetectable to <=5 bpm Accelerations: 15X15 Decelerations: None Category: Category II Datetime: 09/26/2018 06:16 Maternal Assessment Level of Consciousness: Fully Conscious DTR's/Clonus: DTRs 2+ Headache: Denies Blurred Vision: No Respiratory Effort: Unlabored; Equal Expansion Breath Sounds, Left: Clear and Equal Breath Sounds, Right: Clear and Equal Nausea/Vomiting: Denies Labor Evaluation Frequency: 0 Monitor Mode: External Pattern: Normal: <= 5 Contractions in 10 Minutes Resting Tone Dawn: Relaxed Heart Rate FHR Baseline Rate: 135 Monitor Mode: External US FHR Baseline Changes: No Baseline Change Variability: Moderate 6-25 bpm Decelerations: None Category: Category I Pain Presence: None/Denies Datetime: 09/26/2018 05:00 Labor Evaluation Frequency: 0 Monitor Mode: External Pattern: Normal: <= 5 Contractions in 10 Minutes Resting Tone Dawn: Relaxed Heart Rate FHR Baseline Rate: 125 Monitor Mode: External US FHR Baseline Changes: No Baseline Change Variability: Moderate 6-25 bpm Accelerations: 15X15 Decelerations: None Category: Category I Datetime: 09/26/2018 04:02 DTR's/Clonus: DTRs 2+ Respiratory Effort: Unlabored; Equal Expansion Breath Sounds, Left: Clear and Equal Breath Sounds, Right: Clear and Equal Labor Evaluation Frequency: 0 Monitor Mode: External Pattern: Normal: <= 5 Contractions in 10 Minutes Resting Tone Dawn: Relaxed Heart Rate FHR Baseline Rate: 120 Monitor Mode: External US FHR Baseline Changes: No Baseline Change Variability: Minimal - Undetectable to <=5 bpm Accelerations: 15X15 Decelerations: None Category: Category II Datetime: 09/26/2018 03:01 Labor Evaluation Frequency: 0 Monitor Mode: External Pattern: Normal: <= 5 Contractions in 10 Minutes Resting Tone Dawn: Relaxed Heart Rate FHR Baseline Rate: 135 Monitor Mode: External US FHR Baseline Changes: No Baseline Change Variability: Moderate 6-25 bpm Accelerations: 15X15 Decelerations: None Category: Category I Datetime: 09/26/2018 01:42 Labor Evaluation Frequency: none Monitor Mode: External Pattern: Normal: <= 5 Contractions in 10 Minutes Resting Tone Dawn: Relaxed Heart Rate FHR Baseline Rate: 135 Monitor Mode: External US FHR Baseline Changes: No Baseline Change Variability: Moderate 6-25 bpm Accelerations: 15X15 Decelerations: None Category: Category I Datetime: 09/26/2018 01:01 Labor Evaluation Frequency: 0 Monitor Mode: External Pattern: Normal: <= 5 Contractions in 10 Minutes Resting Tone Dawn: Relaxed Contraction Comments: PT REPORTS FEELING CTX. NO CTX NOTED ON TRACING. PT ENCOURAGED TO EMPTY ARIA DDAR. Heart Rate FHR Baseline Rate: 130 Monitor Mode: External US FHR Baseline Changes: No Baseline Change Variability: Moderate 6-25 bpm Accelerations: 15X15 Decelerations: None Category: Category I Datetime: 09/26/2018 00:30 Labor Evaluation Frequency: none Monitor Mode: External Pattern: Normal: <= 5 Contractions in 10 Minutes Resting Tone Dawn: Relaxed Heart Rate FHR Baseline Rate: 135 Monitor Mode: External US FHR Baseline Changes: No Baseline Change Variability: Moderate 6-25 bpm Accelerations: 15X15 Decelerations: None Category: Category I Datetime: 09/26/2018 00:01 Maternal Assessment Level of Consciousness: Fully Conscious DTR's/Clonus: DTRs 2+ Blurred Vision: No Respiratory Effort: Unlabored; Equal Expansion Breath Sounds, Left: Clear and Equal Breath Sounds, Right: Clear and Equal Nausea/Vomiting: Denies Labor Evaluation Frequency: 0 Monitor Mode: External Pattern: Normal: <= 5 Contractions in 10 Minutes Resting Tone Dawn: Relaxed Heart Rate FHR Baseline Rate: 130 Monitor Mode: External US FHR Baseline Changes: No Baseline Change Variability: Moderate 6-25 bpm Accelerations: 15X15 Decelerations: None Category: Category I Pain Presence: None/Denies Datetime: 09/25/2018 23:30 Labor Evaluation Frequency: none Monitor Mode: External Pattern: Normal: <= 5 Contractions in 10 Minutes Resting Tone Dawn: Relaxed Heart Rate FHR Baseline Rate: 130 Monitor Mode: External US FHR Baseline Changes: No Baseline Change Variability: Moderate 6-25 bpm Accelerations: 15X15 Decelerations: None Category: Category I Datetime: 09/25/2018 23:00 Labor Evaluation Frequency: 0 Monitor Mode: External Pattern: Normal: <= 5 Contractions in 10 Minutes Resting Tone Dawn: Relaxed Heart Rate FHR Baseline Rate: 135 Monitor Mode: External US FHR Baseline Changes: No Baseline Change Variability: Moderate 6-25 bpm Accelerations: 15X15 Decelerations: None Category: Category I Datetime: 09/25/2018 22:00 Labor Evaluation Frequency: 1/HR Monitor Mode: External Duration (sec)2399: 90 Quality: Mild Pattern: Normal: <= 5 Contractions in 10 Minutes Resting Tone Dawn: Relaxed Heart Rate FHR Baseline Rate: 130 Monitor Mode: External US FHR Baseline Changes: No Baseline Change Variability: Moderate 6-25 bpm Decelerations: None Category: Category I Pain Presence: None/Denies Datetime: 09/25/2018 21:01 Labor Evaluation Frequency: 0 Monitor Mode: External Quality: Mild Pattern: Normal: <= 5 Contractions in 10 Minutes Resting Tone Dawn: Relaxed Heart Rate FHR Baseline Rate: 135 Monitor Mode: External US FHR Baseline Changes: No Baseline Change Variability: Moderate 6-25 bpm Accelerations: 15X15 Decelerations: None Category: Category I Datetime: 09/25/2018 20:00 Assessment Type: Ongoing Assessment Maternal Assessment Level of Consciousness: Fully Conscious Maternal Assessment Level of Consciousness: Fully Conscious DTR's/Clonus: DTRs 2+; No Clonus DTR's/Clonus: DTRs 2+ Headache: Denies Headache: Denies Blurred Vision: No Blurred Vision: No Respiratory Effort: Unlabored; Regular Rhythm; Equal Expansion Respiratory Effort: Unlabored; Equal Expansion Breath Sounds, Left: Clear and Equal Breath Sounds, Left: Clear and Equal Breath Sounds, Right: Clear and Equal Breath Sounds, Right: Clear and Equal Nausea/Vomiting: Denies Nausea/Vomiting: Denies RUQ Epigastric Pain: Denies Lower Extremities Edema: None Degree: None Upper Extremities Edema: None Degree: None Facial Edema: None Fall Risk Assessment History of Falling: (25) Yes Secondary Diagnosis: (0) No Ambulatory Aid: (0) Bedrest/Nurse Assist IV Therapy: (20) Yes Gait: (0) Normal/Bedrest/Immobile Mental Status: (0) Oriented to Own Ability Fall Score: 45 Fall Risk Score Definition: Low Risk: Please see standard fall prevention interventions Labor Evaluation Frequency: 0 Monitor Mode: External Quality: Mild Pattern: Normal: <= 5 Contractions in 10 Minutes Resting Tone Dawn: Relaxed Heart Rate FHR Baseline Rate: 135 Monitor Mode: External US FHR Baseline Changes: No Baseline Change Variability: Moderate 6-25 bpm Accelerations: 15X15 Decelerations: None Category: Category I Pain Presence: None/Denies Membrane Status: Intact Datetime: 09/25/2018 19:40 Bedside Blood Glucose: 155 Datetime: 09/25/2018 19:14 Labor Evaluation Frequency: 0 Monitor Mode: External Resting Tone Dawn: Relaxed Heart Rate FHR Baseline Rate: 130 Monitor Mode: External US FHR Baseline Changes: No Baseline Change Variability: Moderate 6-25 bpm Accelerations: 15X15 Decelerations: None Category: Category I Datetime: 09/25/2018 17:51 Labor Evaluation Frequency: 0 Monitor Mode: External Resting Tone Dawn: Relaxed Heart Rate FHR Baseline Rate: 130 Monitor Mode: External US FHR Baseline Changes: No Baseline Change Variability: Moderate 6-25 bpm Accelerations: 15X15 Decelerations: None Category: Category I Datetime: 09/25/2018 17:02 Labor Evaluation Frequency: 0 Monitor Mode: External Resting Tone Dawn: Relaxed Heart Rate FHR Baseline Rate: 130 Monitor Mode: External US FHR Baseline Changes: No Baseline Change Variability: Moderate 6-25 bpm Accelerations: 15X15 Decelerations: None Category: Category I Datetime: 09/25/2018 15:57 Maternal Assessment Level of Consciousness: Fully Conscious DTR's/Clonus: DTRs 1+ Blurred Vision: No Nausea/Vomiting: Denies RUQ Epigastric Pain: Denies Labor Evaluation Frequency: 0 Monitor Mode: External Resting Tone Dawn: Relaxed Heart Rate FHR Baseline Rate: 130 Monitor Mode: External US FHR Baseline Changes: No Baseline Change Variability: Moderate 6-25 bpm Accelerations: 15X15 Decelerations: None Category: Category I Datetime: 09/25/2018 14:35 Bedside Blood Glucose: 129 Datetime: 09/25/2018 14:34 Labor Evaluation Frequency: 0 Monitor Mode: External Resting Tone Dawn: Relaxed Heart Rate FHR Baseline Rate: 130 FHR Baseline Changes: No Baseline Change Variability: Moderate 6-25 bpm Accelerations: 15X15 Decelerations: None Category: Category I Datetime: 09/25/2018 13:40 Comments: loc pt asleep Datetime: 09/25/2018 13:38 Labor Evaluation Frequency: 0 Monitor Mode: External Resting Tone Dawn: Relaxed Datetime: 09/25/2018 13:19 Labor Evaluation Frequency: 0 Monitor Mode: External Resting Tone Dawn: Relaxed Heart Rate FHR Baseline Rate: 130 FHR Baseline Changes: No Baseline Change Variability: Moderate 6-25 bpm Accelerations: 15X15 Decelerations: None Category: Category I Datetime: 09/25/2018 12:56 Pain Presence: None/Denies Datetime: 09/25/2018 11:55 Labor Evaluation Frequency: 0 Monitor Mode: External Resting Tone Dawn: Relaxed Heart Rate FHR Baseline Rate: 130 Monitor Mode: External US FHR Baseline Changes: No Baseline Change Variability: Moderate 6-25 bpm Accelerations: 15X15 Decelerations: None Category: Category I Datetime: 09/25/2018 10:55 Pain Assessment Pain Scale: 10 Pain Location: Head Pain Goal: 0 Pain Relief Measures: Pain Medication Given Datetime: 09/25/2018 10:52 Labor Evaluation Frequency: occasional Monitor Mode: External Quality: Mild Resting Tone Dawn: Relaxed Heart Rate FHR Baseline Rate: 130 FHR Baseline Changes: No Baseline Change Variability: Moderate 6-25 bpm Accelerations: 15X15 Decelerations: None Category: Category I Datetime: 09/25/2018 10:43 Bedside Blood Glucose: 149 Datetime: 09/25/2018 10:38 Maternal Assessment Level of Consciousness: Fully Conscious DTR's/Clonus: DTRs 1+ Headache: Denies Blurred Vision: No Nausea/Vomiting: Denies RUQ Epigastric Pain: Denies Facial Edema: None Labor Evaluation Frequency: occasional Monitor Mode: External Quality: Mild Resting Tone Dawn: Relaxed Heart Rate FHR Baseline Rate: 130 Monitor Mode: External US FHR Baseline Changes: No Baseline Change Variability: Moderate 6-25 bpm Accelerations: 15X15 Decelerations: None Category: Category I Datetime: 09/25/2018 09:45 Labor Evaluation Frequency: q2-4 Monitor Mode: External Duration (sec)2399: 60 Quality: Mild Resting Tone Dawn: Relaxed Heart Rate FHR Baseline Rate: 125 Monitor Mode: External US FHR Baseline Changes: No Baseline Change Variability: Moderate 6-25 bpm Accelerations: 15X15 Decelerations: None Category: Category I Datetime: 09/25/2018 09:19 Labor Evaluation Frequency: q2-5 Monitor Mode: External Duration (sec)2399: 60 Quality: Mild Resting Tone Dawn: Relaxed Heart Rate FHR Baseline Rate: 135 Monitor Mode: External US FHR Baseline Changes: No Baseline Change Variability: Moderate 6-25 bpm Accelerations: 15X15 Decelerations: None Category: Category I Datetime: 09/25/2018 08:32 Assessment Type: Ongoing Assessment Maternal Assessment Level of Consciousness: Fully Conscious DTR's/Clonus: DTRs 2+; No Clonus Headache: Denies Blurred Vision: No Respiratory Effort: Unlabored; Regular Rhythm; Equal Expansion Breath Sounds, Left: Clear and Equal Breath Sounds, Right: Clear and Equal Nausea/Vomiting: Denies RUQ Epigastric Pain: Denies Facial Edema: None Fall Risk Assessment History of Falling: (0) No Secondary Diagnosis: (0) No Ambulatory Aid: (0) Bedrest/Nurse Assist IV Therapy: (20) Yes Gait: (0) Normal/Bedrest/Immobile Mental Status: (0) Oriented to Own Ability Fall Score: 20 Fall Risk Score Definition: No Risk: No action required Datetime: 09/25/2018 08:22 Bedside Blood Glucose: 135 Pain Presence: None/Denies Datetime: 09/25/2018 08:20 Maternal Assessment Level of Consciousness: Fully Conscious DTR's/Clonus: DTRs 1+ Headache: Denies Blurred Vision: No Respiratory Effort: Unlabored Breath Sounds, Left: Clear and Equal Breath Sounds, Right: Clear and Equal Nausea/Vomiting: Present RUQ Epigastric Pain: Denies Facial Edema: None Labor Evaluation Frequency: q3-6 Monitor Mode: External Duration (sec)2399: 60 Quality: Mild Resting Tone Dawn: Relaxed Heart Rate FHR Baseline Rate: 130 FHR Baseline Changes: No Baseline Change Variability: Moderate 6-25 bpm Accelerations: 15X15 Decelerations: None Category: Category I Datetime: 09/25/2018 07:00 Labor Evaluation Frequency: 2-8 Monitor Mode: External Duration (sec)2399: 40-100 Pattern: Normal: <= 5 Contractions in 10 Minutes Heart Rate FHR Baseline Rate: 130 Monitor Mode: External US Variability: Moderate 6-25 bpm Accelerations: 15X15 Decelerations: None Category: Category I Datetime: 09/25/2018 06:00 Labor Evaluation Frequency: 2-6 Monitor Mode: External Duration (sec)2399: 40-120 Pattern: Normal: <= 5 Contractions in 10 Minutes Heart Rate FHR Baseline Rate: 130 Monitor Mode: External US Variability: Moderate 6-25 bpm Accelerations: 15X15 Decelerations: None Category: Category I Datetime: 09/25/2018 05:00 Maternal Assessment Level of Consciousness: Fully Conscious DTR's/Clonus: DTRs 2+; No Clonus Respiratory Effort: Unlabored; Regular Rhythm; Equal Expansion Labor Evaluation Frequency: 2-8 Monitor Mode: External Duration (sec)2399: 40-120 Pattern: Normal: <= 5 Contractions in 10 Minutes Heart Rate FHR Baseline Rate: 135 Monitor Mode: External US Variability: Moderate 6-25 bpm Accelerations: 15X15 Decelerations: None Category: Category I Datetime: 09/25/2018 04:51 Pain Assessment Pain Scale: 7 Pain Presence: Constant Pain Type: Ache Pain Location: Head Pain Goal: 2 Pain Assessment Comments: pt states her headache is now a 710. cold compresses given to pt Datetime: 09/25/2018 04:00 Labor Evaluation Frequency: 2-8 Monitor Mode: External Duration (sec)2399: 40-120 Pattern: Normal: <= 5 Contractions in 10 Minutes Heart Rate FHR Baseline Rate: 135 Monitor Mode: External US Variability: Moderate 6-25 bpm Accelerations: 15X15 Decelerations: None Category: Category I Datetime: 09/25/2018 03:47 Maternal Assessment Level of Consciousness: Fully Conscious DTR's/Clonus: DTRs 2+; No Clonus Headache: Generalized Blurred Vision: No Respiratory Effort: Unlabored; Regular Rhythm; Equal Expansion Breath Sounds, Left: Clear and Equal Breath Sounds, Right: Clear and Equal Nausea/Vomiting: Denies RUQ Epigastric Pain: Denies Pain Assessment Pain Scale: 8 Pain Presence: Intermittent Pain Type: Contraction; Ache Pain Location: Abdomen; Head Pain Goal: 2 Pain Assessment Comments: headache is 8/10 and uc pain is 5/10. Datetime: 09/25/2018 03:29 Stage of : Antepartum Labor Evaluation Frequency: X6 Monitor Mode: External Duration (sec)2399: 60-100 Quality: Mild Resting Tone Dawn: Relaxed Heart Rate FHR Baseline Rate: 130 Monitor Mode: External US Variability: Moderate 6-25 bpm Accelerations: 15X15 Decelerations: None Category: Category I Pain Presence: None/Denies Pain Type: N/A Datetime: 09/25/2018 03:00 Stage of : Antepartum Labor Evaluation Frequency: IRREG Monitor Mode: External Duration (sec)2399: 60-80 Quality: Mild Resting Tone Dawn: Relaxed Heart Rate FHR Baseline Rate: 130 Monitor Mode: External US Variability: Moderate 6-25 bpm Accelerations: 15X15 Decelerations: None Category: Category I Pain Presence: Intermittent Pain Type: Cramping Pain Location: Abdomen Pain Assessment Comments: Pt repositioned to semi fowlers where she feels better. Datetime: 09/25/2018 02:20 Stage of : Antepartum Datetime: 09/25/2018 02:15 Stage of : Antepartum Datetime: 09/25/2018 02:07 Pain Assessment Pain Scale: 7 Pain Presence: Constant Pain Type: Cramping; Sharp Pain Location: Abdomen; Perineum Pain Goal: 3 Pain Assessment Comments: PT STATES HER BOTTOM HURTS LIKE BONE PAIN FROM HER FALL. PT ALSO STATES SHE FEELS CHEST PAIN AND HER CONTRACTIONS HURT MORE NOW THAN THEY DID BEFORE. Datetime: 09/25/2018 01:00 Stage of : Antepartum Labor Evaluation Frequency: 1-6 MINS Monitor Mode: Internal Duration (sec)2399: 40-120 Quality: Mild Resting Tone Dawn: Relaxed Heart Rate FHR Baseline Rate: 135 Monitor Mode: External US Variability: Moderate 6-25 bpm Accelerations: None Decelerations: None Category: Category I Pain Assessment Pain Scale: 3 Pain Presence: None/Denies Pain Type: N/A Pain Goal: 2 Pain Assessment Comments: PT STATES SHE STILL FEELS A FEW UC'S Datetime: 09/25/2018 00:49 Pain Assessment Pain Scale: 7 Pain Presence: Constant Pain Type: Ache Pain Location: Head Pain Relief Measures: Pain Medication Given Datetime: 09/25/2018 00:03 Pain Presence: None/Denies Pain Type: N/A Datetime: 09/25/2018 00:00 Stage of : Antepartum Maternal Assessment Level of Consciousness: Fully Conscious DTR's/Clonus: DTRs 2+; No Clonus Breath Sounds, Right: Clear and Equal RUQ Epigastric Pain: Denies Labor Evaluation Frequency: 2-6 MINS Monitor Mode: External Duration (sec)2399: 40-90 Quality: Mild Resting Tone Dawn: Relaxed Heart Rate FHR Baseline Rate: 140 Monitor Mode: Internal Scalp Electrode Variability: Moderate 6-25 bpm Accelerations: None Decelerations: None Category: Category II Pain Presence: None/Denies Pain Type: N/A Datetime: 09/24/2018 23:32 Stage of : Antepartum Datetime: 09/24/2018 23:23 Stage of : Antepartum Bedside Blood Glucose: 123 Datetime: 09/24/2018 23:00 Stage of : Antepartum Labor Evaluation Frequency: 3-6 MIN Monitor Mode: External Duration (sec)2399: 60-100 Quality: Mild Resting Tone Dawn: Relaxed Heart Rate FHR Baseline Rate: 140 Monitor Mode: Internal Scalp Electrode Variability: Moderate 6-25 bpm Accelerations: 15X15 Decelerations: None Category: Category I Pain Assessment Pain Scale: 3 Pain Presence: Intermittent Pain Type: Cramping Pain Location: Abdomen Pain Goal: 2 Pain Assessment Comments: PT STATES SHE FEELS LESS UC'S THAN BEFORE. Datetime: 09/24/2018 22:35 Stage of : Antepartum Datetime: 09/24/2018 22:00 Stage of : Antepartum DTR's/Clonus: DTRs 1+; No Clonus Labor Evaluation Frequency: 1-5 MIN Monitor Mode: External Duration (sec)2399: 60-80 Quality: Mild Resting Tone Dawn: Relaxed Heart Rate FHR Baseline Rate: 130 Monitor Mode: External US Variability: Moderate 6-25 bpm Accelerations: None Decelerations: None Category: Category I Pain Assessment Pain Scale: 3 Pain Presence: Intermittent Pain Type: Cramping Pain Goal: 2 Pain Assessment Comments: PT STATES SHE FEELS AN OCCASSIONAL UC Datetime: 09/24/2018 21:25 Stage of : Antepartum Temperature Route: Oral Datetime: 09/24/2018 21:15 Stage of : Antepartum Datetime: 09/24/2018 21:00 Labor Evaluation Frequency: 1.5-6 Monitor Mode: External Duration (sec)2399: 50-120 Pattern: Normal: <= 5 Contractions in 10 Minutes Heart Rate FHR Baseline Rate: 130 Monitor Mode: External US Variability: Moderate 6-25 bpm Accelerations: 15X15 Decelerations: None Category: Category I Datetime: 09/24/2018 20:00 Labor Evaluation Frequency: 3-7 Monitor Mode: External Duration (sec)2399: 70-140 Pattern: Normal: <= 5 Contractions in 10 Minutes Resting Tone Dawn: Relaxed Heart Rate FHR Baseline Rate: 135 Monitor Mode: External US Variability: Moderate 6-25 bpm Accelerations: 15X15 Decelerations: None Category: Category I Datetime: 09/24/2018 19:54 Assessment Type: Admission Assessment Vaginal Bleeding: None Maternal Assessment Level of Consciousness: Fully Conscious DTR's/Clonus: DTRs 2+; No Clonus Headache: Denies Blurred Vision: No Respiratory Effort: Unlabored; Regular Rhythm; Equal Expansion Breath Sounds, Left: Clear and Equal Breath Sounds, Right: Clear and Equal Nausea/Vomiting: Denies RUQ Epigastric Pain: Present Lower Extremities Edema: None Degree: None Upper Extremities Edema: None Degree: None Facial Edema: None Fall Risk Assessment History of Falling: (0) No Secondary Diagnosis: (0) No Ambulatory Aid: (0) Bedrest/Nurse Assist IV Therapy: (20) Yes Gait: (0) Normal/Bedrest/Immobile Mental Status: (0) Oriented to Own Ability Fall Score: 20 Fall Risk Score Definition: No Risk: No action required Pain Assessment Pain Scale: 7 Pain Presence: Intermittent Pain Type: Sharp Pain Location: Abdomen Pain Goal: 2 Membrane Status: Intact Datetime: 09/24/2018 19:41 Time of Arrival: 09/24/2018 19:30 EGA: 33.0 Arrived By: Ambulatory Arrived From: Home Datetime: 09/24/2018 19:32 Labor Evaluation Frequency: IRREGULAR Monitor Mode: External Duration (sec)2399: 50-60 Quality: Mild Pattern: Normal: <= 5 Contractions in 10 Minutes Resting Tone Dawn: Relaxed Heart Rate FHR Baseline Rate: 135 Monitor Mode: External US FHR Baseline Changes: No Baseline Change Variability: Moderate 6-25 bpm Accelerations: 15X15 Decelerations: None Category: Category I Datetime: 09/24/2018 19:22 Station: -2 Datetime: 09/24/2018 19:21 Vaginal Exam Dilatation (cms): 1.0 Effacement (%): 70 Membrane Status: Intact Datetime: 09/24/2018 19:17 Bedside Blood Glucose: 88 Datetime: 09/24/2018 19:13 Vaginal Exam Dilatation (cms): 1.0 Effacement (%): 70 Station: -2 Exam By: Dr. Delshad Datetime: 09/24/2018 18:57 Stage of : OB Triage Datetime: 09/24/2018 18:30 Labor Evaluation Frequency: 4 Monitor Mode: External Duration (sec)2399: 90-100 Quality: Mild Pattern: Normal: <= 5 Contractions in 10 Minutes Resting Tone Dawn: Relaxed Heart Rate FHR Baseline Rate: 140 Monitor Mode: External US Variability: Moderate 6-25 bpm Accelerations: None Decelerations: None Category: Category II Pain Assessment Pain Scale: 6 Pain Presence: Intermittent Pain Type: Contraction Pain Location: Abdomen Pain Relief Measures: Comfort Measures Datetime: 09/24/2018 18:27 Assessment Type: Ongoing Assessment Maternal Assessment Level of Consciousness: Fully Conscious Headache: Denies Blurred Vision: No Respiratory Effort: Unlabored; Regular Rhythm; Equal Expansion Breath Sounds, Left: Clear and Equal Breath Sounds, Right: Clear and Equal Nausea/Vomiting: Present RUQ Epigastric Pain: Denies Lower Extremities Edema: None Degree: None Upper Extremities Edema: None Degree: None Facial Edema: None Fall Risk Assessment History of Falling: (0) No Secondary Diagnosis: (0) No Ambulatory Aid: (0) Bedrest/Nurse Assist IV Therapy: (0) No Gait: (0) Normal/Bedrest/Immobile Mental Status: (0) Oriented to Own Ability Fall Score: 0 Fall Risk Score Definition: No Risk: No action required Datetime: 09/24/2018 18:24 Time of Arrival: 09/24/2018 17:16 EGA: 33.0 Arrived By: Wheelchair Arrived From: Home Movement: Present Contractions: Denies/Absent Rupture of Membranes: Unsure Vaginal Bleeding: None Vaginal Discharge: Denies Recent Sexual Intercouse: Denies Abdominal Trauma: Fight Patient Complaints: Other Additional Patient Complaints: sharp abdomen pain r upper abdomen and pain in lower abdomen when sh e moved Time Provider Notified: 09/24/2018 18:57 Provider Notified: Cindi Initial Plan: toco, efm, v/s
[2018-10-06] MEDS ORDERED: OXYTOCIN 30 UNITS/LR 500 ML IV PRN (07:00)
[2018-10-06] MEDS ORDERED: MISOPROSTOL 200 MCG TAB PR PRN (07:00)
[2018-10-06] MEDS ORDERED: OXYTOCIN 30 UNITS/LR 500 ML IV SCH ×3 (07:00→13:00)
[2018-10-06] MEDS ORDERED: LIDOCAINE 1% (MPF) 30 ML INJ INJ PRN (07:00)
[2018-10-06] MEDS ORDERED: METHYLERGONOVINE 0.2 MG INJ IM PRN (07:00)
[2018-10-06] MEDS ORDERED: BUTORPHANOL 2 MG INJ IV PRN (07:00)
[2018-10-06] MEDS ORDERED: CARBOPROST 250 MCG INJ IM PRN (07:00)
[2018-10-06] MEDS ORDERED: IBUPROFEN 600 MG TAB PO PRN (07:00)
[2018-10-06] MEDS ORDERED: AMPICILLIN 2 GM/NS (PMX) 100 ML IV ONE (07:00)
[2018-10-06] MEDS: LACTATED RINGER'S 1,000 ML IV SCH ×3 (08:08→18:58)
--- NOTE | 2018-10-06 11:41 | PREAC ---
Date/Time of Note Date/Time of Note DATE: 10/06/18 TIME: 11:41 Anesthesia Eval and Record Evaluation Time Pre-Procedure Interview DATE: 10/06/18 TIME: 11:41 Age 28 Sex female NPO: 8 hrs Preoperative diagnosis Planned procedure labor epidural Past Medical History Past Medical History: Includes Endo: Diabetes GI: Obesity Surgery & Anesthesia Issues No known issue Meds Anticoagulation: No Beta Shreyas within 24 hr: No Reason Beta Shreyas not given: Pt. not on B-Shreyas Reported Medications Nifedipine* (Procardia*) 20 Mg Cap, 20 MG PO Q6, CAP 10/06/18 Pnv95/Ferrous Fumarate/FA ( Vitamins Tablet) 1 Each Tablet, 1 EACH PO, TAB 10/06/18 Hum Insulin NPH/Reg Insulin Hm (Humulin 70/30 Kwikpen) 100 Unit/1 Ml Insuln.pen, 6 UNIT SQ QPM 09/24/18 Metformin Hcl* (Metformin Hcl*) 1,000 Mg Tablet, 1000 MG PO WITH BREAKFAST DINNE, #60 TAB 09/24/18 Current Medications Lactated Ringer's 1,000 ml @ 125 mls/hr Q8H IV Last administered on 10/06/18at 08:08; Admin Dose 125 MLS/HR; Start 10/06/18 at 06:32 Ampicillin 50 ml @ 100 mls/hr Q4H IV ; Start 10/06/18 at 11:00 Butorphanol Tartrate (Stadol) 2 mg Q2H PRN IV .PAIN SCALE 6-10; Start 10/06/18 at 07:00 Lidocaine (Xylocaine 1% (Mpf)) 30 ml ONCE PRN INJ .EPISIOTOMY; Start 10/06/18 at 07:00 Oxytocin/Lactated Ringer's 500 ml @ 500 mls/hr ONCE POST IV ; Start 10/06 at 07:00 Oxytocin/Lactated Ringer's 500 ml @ 125 mls/hr POST IV ; Start 10/06/18 at 07:00 Ibuprofen (Motrin) 600 mg ONCE PRN PO .PAIN 1-5; Start 10/06/18 at 07:00 Oxytocin/Lactated Ringer's 500 ml @ 0 mls/hr ONCE PRN IV .VAGINAL BLEEDING; Start 10/06/18 at 07:00 Methylergonovine Maleate (Methergine) 0.2 mg ONCE PRN IM .VAGINAL BLEEDING; Start 10/06/18 at 07:00 Carboprost Tromethamine (Hemabate) 250 mcg ONCE PRN IM .VAGINAL BLEEDING; Start 10/06/18 at 07:00 Misoprostol (Cytotec) 1,000 mcg ONCE PRN ND .VAGINAL BLEEDING; Start 10/06/18 at 07:00 Meds reviewed: Yes Allergies Coded Allergies: No Known Allergy (Unverified , 09/24/18) Allergies Reviewed: Yes Labs/Studies Labs Reviewed: Reviewed by anesthesiologist Result Diagram: 10/06/18 0806 10/06/18 0806 Laboratory Tests 10/06/18 08:06 Blood Bank Test 10/06/18 08:06 Antibody Screen NEGATIVE Blood Type O POSITIVE Rh Immune Globulin Candidate NO test: Positive Pre-procedure Exam Airway: Adequate mouth opening, Adequate thyromental dist Mallampati: Mallampati II Teeth: Normal Lung: Normal Heart: Normal ASA Physical Status ASA physical status: 2 Emergency: None Planned Anesthetic Neuraxial: Epidural Pre-operative Attestations Prior to commencing anesthesia and surgery, the patient was re-evaluated, there was verification of: *The patient's identity *The results of appropriate recent lab work and preoperative vital signs *The above evaluation not changing prior to induction *Anesthetic plan, risk benefits, alternative and complications discussed with patient/family; questions answered; patient/family understands, accepts and wishes to proceed. MAURICE SMITH Oct 06, 2018 11:41
[2018-10-06] MEDS ORDERED: NALOXONE (0.4 MG/ML) INJ IV PRN (12:00)
[2018-10-06] MEDS ORDERED: KETOROLAC 30 MG INJ IV PRN (12:00)
[2018-10-06] MEDS ORDERED: FENTAnyl 2MCG/ML-ROPIV 0.2% 100 ML BAG EPI SCH (12:00)
[2018-10-06] MEDS ORDERED: ONDANSETRON 4 MG INJ IV PRN (12:00)
[2018-10-06] MEDS ORDERED: HYDROmorphONE 0.5 MG/0.5 ML SYG IV PRN ×2 (12:00)
[2018-10-06] MEDS ORDERED: DIPHENHYDRAMINE 50 MG INJ IV PRN (12:00)
[2018-10-06] MEDS: AMPICILLIN 1 GM/NS (PMX) 50 ML IV SCH ×3 (12:04→19:57)
--- NOTE | 2018-10-06 13:21 | PAC ---
Date/Time of Note Date/Time of Note DATE: 10/06/18 TIME: 13:21 Post-Anesthesia Notes Post-Anesthesia Note Activity: WNL Respiratory function: WNL Cardiovascular function: WNL Mental status: Baseline Pain reasonably controlled: Yes Hydration appropriate: Yes Nausea/Vomiting absent: Yes MAURICE SMITH Oct 06, 2018 13:21
--- NOTE | 2018-10-06 13:38 | HP ---
Date/Time of Note Date/Time of Note DATE: 10/06/18 TIME: 13:34 OB - History Hx of Present Chief Complaint: leakage of fluid Estimated Due Date: Nov 05, 2018 : 1 Para: 0 Spontaneous : 0 Therapeutic : 0 Care: Good Care Ultrasounds: Normal mid trimester US Obstetrical Complications: Gestational Diabetes Medical Complications: None Past Family/Social History * Past Medical, Surgical, Family and Obstetric Histories reviewed from chart. GBS Status: Unknown OB Admission Exam Physical Exam HEENT: WNL Heart: Rhythm Normal Lungs: Clear, Equal Abdomen: WNL Extremities: Normal Reflexes: Normal Cervical Dilatation: 2cm Effacement: 50% Station: -1 Membranes: Ruptured Amniotic Fluid: Clear Heart Rate: 120's Accelerations: Accelerations Present Decelerations: No Decelerations Varibility: Moderate Last 72 hourBlood Glucose Bedside Glucose - 72 Hours Test 10/06/18 12:07 Bedside Glucose 105 mg/dL (70-220) Last 72 hours Lab Results CBC & BMP 10/06/18 08:06 OB Assessment/Plan Reason for admission: rupture of membranes Plan: Expectant Management, Other Other plan: Augmentation of labor as needed RYANNE MOSS MD Oct 06, 2018 13:38
[2018-10-06] MEDS ORDERED: DEXTROSE 5%-LR 1,000 ML IV SCH (17:00)
[2018-10-07] VITALS (20 sets, daily range): BP systolic 109–135; BP diastolic 69–86; PULSE 67–104; RESP 16–19
[2018-10-07] MEDS: AMPICILLIN 1 GM/NS (PMX) 50 ML IV SCH (00:03)
--- NOTE | 2018-10-07 01:33 | LDN ---
Date/Time of Note Date/Time of Note DATE: 10/07/18 TIME: 01:30 Delivery Summary Uterine atony noted. Methergine and Hemabate given. Weeks of Gestation 35 weeks Placenta Delivered: Spontaneously Meconium: Particulate Episiotomy: No Laceration repair: Second degree perineal alceration repaired with 3-0 Vicryl and 3-0 chromic. Anesthesia type: Epidural Estimated blood loss: 500 Sponge & Needle done & correct: Yes All needle counts correct: Yes Any foreign bodies felt in the: No Infant Delivery Information Sex Sex: female Apgars 1 Minute: 7 5 Minute: 8 Suctioning Nose & mouth suctioned at parminder: No Umbilical Cord Umbilical cord with: 3 Vessels Cord presentations: no nuchal cord Cord Blood was obtained: Yes Mother & Baby Disposition Disposition Mom transferred to: Other () Baby to NICU: Yes RYANNE MOSS MD Oct 07, 2018 01:33
[2018-10-07] MEDS ORDERED: MAGNESIUM SULFATE 4 GM/100 ML 100 ML IV ONE (02:00)
[2018-10-07] MEDS: MAGNESIUM SULFATE 20 GM/500 ML 500 ML IV SCH ×3 (02:28→23:38)
[2018-10-07] MEDS: LACTATED RINGER'S 1,000 ML IV* SCH ×3 (03:43→22:32)
[2018-10-07] MEDS: WITCH HAZEL/GLYCERIN PAD PR PRN (03:57)
[2018-10-07] MEDS ORDERED: MISOPROSTOL 200 MCG TAB PR PRN (04:00)
[2018-10-07] MEDS ORDERED: CARBOPROST 250 MCG INJ IM PRN (04:00)
[2018-10-07] MEDS ORDERED: DIBUCAINE 1% 30 GM OINT TOP PRN (04:00)
[2018-10-07] MEDS ORDERED: BENZOCAINE 20% 56 ML SPRAY TOP PRN (04:00)
[2018-10-07] MEDS ORDERED: OXYTOCIN 30 UNITS/LR 500 ML IV PRN (04:00)
[2018-10-07] MEDS ORDERED: METHYLERGONOVINE 0.2 MG INJ IM PRN (04:00)
[2018-10-07] MEDS ORDERED: ACETAMINOPHEN 325 MG TAB PO PRN (04:00)
[2018-10-07] MEDS: HYDROCODONE/APAP (5/325) TAB PO PRN (04:03)
[2018-10-07] MEDS: IBUPROFEN 600 MG TAB PO SCH ×4 (05:57→23:41)
[2018-10-07] MEDS: SENNA/DOCUSATE NA (8.6MG/50MG) TAB PO SCH ×2 (09:00→21:00)
[2018-10-07] MEDS ORDERED: IBUPROFEN 600 MG TAB PO PRN (12:00)
--- NOTE | 2018-10-07 14:25 | CONS ---
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 I have had careful discussion with her the natural history of the sugars. I have advised her that if she was to come from her prepregnancy weight of 195 pounds to weight and eventually her her own speed of roughly 170 pounds she might not need therapeutic intervention.In the meantime she will be on Metformin with low dose NPH, and we will follow (2) 1 para 1 Status: Acute Comment: Noted. No evidence of eclampsia (3) Obesity (BMI 30-39.9) Status: Chronic Comment: Counselled CC: RYANNE MOSS MD ; Consultation Date/Type/Reason Admit Date/Time Oct 06, 2018 at 06:35 Date of Consultation: Oct 07, 2018 Type of Consult Endocrine Reason for Consultation Diabetes mellitus type 2 on oral agents prior to , on combined metformin and insulin during now by vaginal delivery Requesting Provider: RYANNE MOSS MD Date/Time of Note DATE: 10/07/18 TIME: 14:20 Hx of Present Illness Pleasant 28-year-old female normally Cared for at [facility]. Prior to her she been on metformin as single agent treatment for diabetes. When she became she was placed onto insulin with the metformin. She did not have any prior history of elevations of blood pressure she did not have any other medical problems to the best of her knowledge. Constitutional: no complaints Eyes: no complaints ENT: no complaints Respiratory: no complaints Cardiovascular: no complaints Gastrointestinal: no complaints Genitourinary: no complaints Musculoskeletal: no complaints Skin: no complaints Past Medical History Medical History: diabetes, other (Obesity; G1, P1 Ab0) Home Meds Reported Medications Nifedipine* (Procardia*) 20 Mg Cap, 20 MG PO Q6, CAP 10/06/18 Pnv95/Ferrous Fumarate/FA ( Vitamins Tablet) 1 Each Tablet, 1 EACH PO, TAB 10/06/18 Hum Insulin NPH/Reg Insulin Hm (Humulin 70/30 Kwikpen) 100 Unit/1 Ml Insuln.pen, 6 UNIT SQ QPM 09/24/18 Metformin Hcl* (Metformin Hcl*) 1,000 Mg Tablet, 1000 MG PO WITH BREAKFAST DINNE, #60 TAB 09/24/18 Medications Current Medications Magnesium Sulfate 500 ml @ 50 mls/hr Q10H IV Last administered on 10/07/18at 13:18; Admin Dose 50 MLS/HR; Start 10/07/18 at 02:30; Stop 10/08/18 at 02:30 Lactated Ringer's 1,000 ml @ 125 mls/hr Q8H IV* Last administered on 10/07/18at 08:27; Admin Dose 125 MLS/HR; Start 10/07/18 at 03:43 Ibuprofen (Motrin) 600 mg Q6 PO Last administered on 10/07/18at 13:18; Admin Dose 600 MG; Start 10/07/18 at 06:00 Acetaminophen (Tylenol Tab) 650 mg Q4H PRN PO .PAIN 1-5; Start 10/07/18 at 04:00 Acetaminophen/ Hydrocodone Bitart ([place] (5/325)) 1 tab Q4H PRN PO .PAIN 1-5 Last administered on 10/07/18at 04:03; Admin Dose 1 TAB; Start 10/07/18 at 04:00 Senna/Docusate Sodium (Senokot-S) 1 tab BID PO ; Start 10/07/18 at 09:00 [place]/ Glycerin (Tucks Pads) 1 pad BEDSIDE MEDICATION PRN ID .HEMORRHOID/EPISIOTOMY PAIN Last administered on 10/07/18at 03:57; Admin Dose 40 PAD; Start 10/07/18 at 04:00 Benzocaine (Dermoplast [place]) 1 spray BEDSIDE MEDICATION PRN TOP .HEMMORHOID/EPISIOTOMY PAIN Last administered on 10/07/18at 03:57; Admin Dose 56 SPRAY; Start 10/07/18 at 04:00 Dibucaine (Nupercainal) 1 applic BEDSIDE MEDICATION PRN TOP .HEMMORHOID/EPISIOTOMY; Start 10/07/18 at 04:00 Diphtheria/ Tetanus/Acell Pertussis (Adacel) 0.5 ml ONCE ONCE IM* ; Start 10/09/18 at 09:00; Stop 10/09/18 at 09:01 Oxytocin/Lactated Ringer's 500 ml @ 0 mls/hr ONCE PRN IV .VAGINAL BLEEDING; Start 10/07/18 at 04:00 Methylergonovine Maleate (Methergine) 0.2 mg ONCE PRN IM .VAGINAL BLEEDING; Start 10/07/18 at 04:00 Carboprost Tromethamine (Hemabate) 250 mcg ONCE PRN IM .VAGINAL BLEEDING; Start 10/07/18 at 04:00 Misoprostol (Cytotec) 1,000 mcg ONCE PRN ID .VAGINAL BLEEDING; Start 10/07/18 at 04:00 Allergies: Coded Allergies: No Known Allergy (Unverified , 09/24/18) Past Surgical History Past Surgical Hx: no surgical history Family History Significant Family History: diabetes Social History Alcohol Use: none Smoking Status: Never smoker Drug Use: none Exam/Review of Systems Exam Vitals Vital Signs Date Temp Pulse Resp B/P (MAP) Pulse Ox O2 O2 Flow FiO2 Time Delivery Rate 10/07/18 83 125/84 10:05 (98) 10/07/18 16 09:05 10/07/18 98.2 Room Air 08:05 10/07/18 95 05:00 Intake and Output 10/06/18 10/06/18 10/07/18 1414:59 22:59 06:59 IntakeIntake Total 1631 ml 1594 ml OutputOutput Total 2446 ml BalanceBalance 1631 ml -852 ml Constitutional: alert, oriented Neck: supple, non-tender Respiratory: clear to auscultation, normal air movement Cardiovascular: regular rate and rhythm, nl pulses Gastrointestinal: soft, nl liver, spleen, non-tender Results Result Diagram: 10/07/18 01310/07/18 0137 Results 24hrs Laboratory Tests Test 10/06/18 16:09 10/06/18 20:13 10/06/18 22:09 10/07/18 00:01 Bedside Glucose 89 95 95 107 Test 10/07/18 01:25 10/07/18 01:37 10/07/18 01:38 10/07/18 06:22 Urine Color YELLOW Urine Clarity CLEAR Urine pH 6.0 Urine Specific 1.008 Hunt Urine Ketones TRACE A Urine Nitrite NEGATIVE Urine Bilirubin NEGATIVE Urine Urobilinogen NEGATIVE Urine Leukocyte NEGATIVE Esterase Urine Microscopic RBC 11 H Urine Microscopic WBC 1 Urine Bacteria FEW A Urine Hemoglobin 2+ H Urine Glucose NEGATIVE Urine Total Protein NEGATIVE White Blood Count 11.8 #H Red Blood Count 4.48 Hemoglobin 12.8 Hematocrit 38.5 Mean Corpuscular 85.9 Volume Mean Corpuscular 28.6 L Hemoglobin Mean Corpuscular 33.2 Hemoglobin Concent Red Cell Distribution 13.4 Width Platelet Count 152 Mean Platelet Volume 13.9 H Immature Granulocytes 0.600 H % Neutrophils % 79.9 H Lymphocytes % 15.5 Monocytes % 3.6 Eosinophils % 0.1 Basophils % 0.3 Nucleated Red Blood 0.0 Cells % Immature Granulocytes 0.070 H # Neutrophils # 9.4 H Lymphocytes # 1.8 Monocytes # 0.4 Eosinophils # 0.0 Basophils # 0.0 Nucleated Red Blood 0.0 Cells # Sodium Level 139 Potassium Level 4.1 Chloride Level 109 Carbon Dioxide Level 19 L Anion Gap 11 Blood Urea Nitrogen 11 Creatinine 0.62 Est Glomerular > 60 Filtrat Rate mL/min Glucose Level 104 Calcium Level 9.5 Total Bilirubin 0.8 Direct Bilirubin 0.00 Indirect Bilirubin 0.8 Aspartate Amino 38 Transf (AST/SGOT) Alanine 60 Aminotransferase (ALT /SGPT) Alkaline Phosphatase 174 H Total Protein 7.3 Albumin 3.6 Globulin 3.70 H Albumin/Globulin 0.97 Ratio Uric Acid 6.3 Lab Scanned Report REFERENCE LAB Test 10/07/18 07:17 10/07/18 11:37 10/07/18 12:43 Magnesium Level 4.6 H 5.2 *H Bedside Glucose 181 Medications Medication Current Medications Magnesium Sulfate 500 ml @ 50 mls/hr Q10H IV Last administered on 10/07/18at 13:18; Admin Dose 50 MLS/HR; Start 10/07/18 at 02:30; Stop 10/08/18 at 02:30 Lactated Ringer's 1,000 ml @ 125 mls/hr Q8H IV* Last administered on 10/07/18at 08:27; Admin Dose 125 MLS/HR; Start 10/07/18 at 03:43 Ibuprofen (Motrin) 600 mg Q6 PO Last administered on 10/07/18at 13:18; Admin Dose 600 MG; Start 10/07/18 at 06:00 Acetaminophen (Tylenol Tab) 650 mg Q4H PRN PO .PAIN 1-5; Start 10/07/18 at 04:00 Acetaminophen/ Hydrocodone Bitart ([place] (5/325)) 1 tab Q4H PRN PO .PAIN 1-5 Last administered on 10/07/18at 04:03; Admin Dose 1 TAB; Start 10/07/18 at 04:00 Senna/Docusate Sodium (Senokot-S) 1 tab BID PO ; Start 10/07/18 at 09:00 [place]/ Glycerin (Tucks Pads) 1 pad BEDSIDE MEDICATION PRN ID .HEMORRHOID/EPISIOTOMY PAIN Last administered on 10/07/18at 03:57; Admin Dose 40 PAD; Start 10/07/18 at 04:00 Benzocaine (Dermoplast [place]) 1 spray BEDSIDE MEDICATION PRN TOP .HEMMORHOID/EPISIOTOMY PAIN Last administered on 10/07/18at 03:57; Admin Dose 56 SPRAY; Start 10/07/18 at 04:00 Dibucaine (Nupercainal) 1 applic BEDSIDE MEDICATION PRN TOP .HEMMORHOID/EPISIOTOMY; Start 10/07/18 at 04:00 Diphtheria/ Tetanus/Acell Pertussis (Adacel) 0.5 ml ONCE ONCE IM* ; Start 10/09/18 at 09:00; Stop 10/09/18 at 09:01 Oxytocin/Lactated Ringer's 500 ml @ 0 mls/hr ONCE PRN IV .VAGINAL BLEEDING; Start 10/07/18 at 04:00 Methylergonovine Maleate (Methergine) 0.2 mg ONCE PRN IM .VAGINAL BLEEDING; Start 10/07/18 at 04:00 Carboprost Tromethamine (Hemabate) 250 mcg ONCE PRN IM .VAGINAL BLEEDING; Start 10/07/18 at 04:00 Misoprostol (Cytotec) 1,000 mcg ONCE PRN ID .VAGINAL BLEEDING; Start 10/07/18 at 04:00 KEAGNA HERNANDEZ MD Oct 07, 2018 14:25
[2018-10-07] MEDS ORDERED: GLUCOSE GEL 15 GRAM TUBE BUCCAL PRN (14:30)
[2018-10-07] MEDS ORDERED: GLUCAGON 1 MG INJ IM PRN (14:30)
[2018-10-07] MEDS ORDERED: GLUCOSE GEL 15 GRAM TUBE PO PRN ×2 (14:30)
[2018-10-07] MEDS ORDERED: DEXTROSE 50% 50 ML SYRINGE IV PRN ×2 (14:30)
[2018-10-07] MEDS: ACCU-CHEK XX SCH ×2 (17:49→20:34)
[2018-10-07] MEDS: metFORMIN 500 MG TAB PO SCH (17:49)
[2018-10-08] VITALS (7 sets, daily range): BP systolic 106–128; BP diastolic 70–88; PULSE 70–85; RESP 17–20
[2018-10-08] MEDS: IBUPROFEN 600 MG TAB PO SCH ×3 (06:21→18:02)
[2018-10-08] MEDS: LACTATED RINGER'S 1,000 ML IV* SCH (08:34)
[2018-10-08] MEDS: metFORMIN 500 MG TAB PO SCH ×2 (09:10→18:02)
[2018-10-08] MEDS: SENNA/DOCUSATE NA (8.6MG/50MG) TAB PO SCH ×2 (09:10→20:24)
[2018-10-08] MEDS: ACCU-CHEK XX SCH ×6 (09:13→20:20)
--- NOTE | 2018-10-08 12:21 | CONS ---
Assessment/Plan Assessment/Plan Problems: (1) Diabetes mellitus type 2 in obese Status: Chronic Comment: Adding in the NPH insulin at bedtime to help cover. Consultation Date/Type/Reason Admit Date/Time Oct 06, 2018 at 06:35 Initial Consult Date 10/07/18 Type of Consult Endocrine Reason for Consultation Diabetes mellitus type 2 Requesting Provider: RYANNE MOSS MD Date/Time of Note DATE: 10/08/18 TIME: 12:20 24 HR Interval Summary Free Text/Dictation Patient reports that she has noticed that her fingersticks have drifted. No other complaints Exam/Review of Systems Exam Vitals Vital Signs Date Temp Pulse Resp B/P (MAP) Pulse Ox O2 O2 Flow FiO2 Time Delivery Rate 10/08/18 98.0 78 18 128/84 Room Air 09:10 (99) 10/07/18 95 05:00 Intake and Output 10/07/18 10/07/18 10/08/18 1515:00 23:00 07:00 IntakeIntake Total 1025 ml 375 ml OutputOutput Total 400 ml 1700 ml 700 ml BalanceBalance 625 ml -1325 ml -700 ml Constitutional: alert, oriented Respiratory: clear to auscultation, normal air movement Cardiovascular: regular rate and rhythm, nl pulses Results Result Diagram: 10/08/18 0749 10/07/18 0137 Results 24hrs Laboratory Tests Test 10/07/18 12:43 10/07/18 17:45 10/07/18 18:05 10/07/18 20:29 Bedside Glucose 181 213 211 Magnesium Level 5.2 *H Test 10/08/18 00:34 10/08/18 07:49 10/08/18 09:07 Magnesium Level 5.5 *H White Blood Count 8.9 # Red Blood Count 3.40 #L Hemoglobin 9.7 #L Hematocrit 29.9 #L Mean Corpuscular Volume 87.9 Mean Corpuscular 28.5 L Hemoglobin Mean Corpuscular 32.4 Hemoglobin Concent Red Cell Distribution 13.7 Width Platelet Count 128 L Mean Platelet Volume 13.5 H Immature Granulocytes % 0.800 H Neutrophils % 73.0 Lymphocytes % 21.9 Monocytes % 4.0 Eosinophils % 0.1 Basophils % 0.2 Nucleated Red Blood 0.0 Cells % Immature Granulocytes # 0.070 H Neutrophils # 6.5 Lymphocytes # 2.0 Monocytes # 0.4 Eosinophils # 0.0 Basophils # 0.0 Nucleated Red Blood 0.0 Cells # Bedside Glucose 146 Medications Medication Current Medications Ibuprofen (Motrin) 600 mg Q6 PO Last administered on 10/08/18at 06:21; Admin Dose 600 MG; Start 10/07/18 at 06:00 Acetaminophen (Tylenol Tab) 650 mg Q4H PRN PO .PAIN 1-5; Start 10/07/18 at 04:00 Acetaminophen/ Hydrocodone Bitart ([place] (5/325)) 1 tab Q4H PRN PO .PAIN 1-5 Last administered on 10/07/18at 04:03; Admin Dose 1 TAB; Start 10/07/18 at 04:00 Senna/Docusate Sodium (Senokot-S) 1 tab BID PO Last administered on 10/08/18at 09:10; Admin Dose 1 TAB; Start 10/07/18 at 09:00 Witch Kar[place]/ Glycerin (Tucks Pads) 1 pad BEDSIDE MEDICATION PRN DE .HEMORRHOID/EPISIOTOMY PAIN Last administered on 10/07/18at 03:57; Admin Dose 40 PAD; Start 10/07/18 at 04:00 Benzocaine (Dermoplast [place]) 1 spray BEDSIDE MEDICATION PRN TOP .HEMMORHOID/EPISIOTOMY PAIN Last administered on 10/07/18at 03:57; Admin Dose 56 SPRAY; Start 10/07/18 at 04:00 Dibucaine (Nupercainal) 1 applic BEDSIDE MEDICATION PRN TOP .HEMMORH OID/EPISIOTOMY; Start 10/07/18 at 04:00 Diphtheria/ Tetanus/Acell Pertussis (Adacel) 0.5 ml ONCE ONCE IM* ; Start 10/09/18 at 09:00; Stop 10/09/18 at 09:01 Oxytocin/Lactated Ringer's 500 ml @ 0 mls/hr ONCE PRN IV .VAGINAL BLEEDING; Start 10/07/18 at 04:00 Methylergonovine Maleate (Methergine) 0.2 mg ONCE PRN IM .VAGINAL BLEEDING; Start 10/07/18 at 04:00 Carboprost Tromethamine (Hemabate) 250 mcg ONCE PRN IM .VAGINAL BLEEDING; Start 10/07/18 at 04:00 Misoprostol (Cytotec) 1,000 mcg ONCE PRN DE .VAGINAL BLEEDING; Start 10/07/18 at 04:00 Metformin HCl (Glucophage) 1,000 mg BID WITH MEALS PO Last administered on 10/08/18at 09:10; Admin Dose 1,000 MG; Start 10/07/18 at 18:05 Diagnostic Test (Pha) (Accu-Chek) 1 ea AC MEALS XX Last administered on 10/08/18at 09:13; Admin Dose 1 EA; Start 10/07/18 at 17:35 Diagnostic Test (Pha) (Accu-Chek) 1 ea 2 HOURS AFTER MEALS XX Last administered on 10/07/18at 20:34; Admin Dose 1 EA; Start 10/07/18 at 20:05 Miscellaneous Information 1 ea NOTE XX ; Start 10/07/18 at 14:30 Glucose (Glutose) 15 gm Q15M PRN PO DECREASED GLUCOSE; Start 10/07/18 at 14:30 Glucose (Glutose) 22.5 gm Q15M PRN PO DECREASED GLUCOSE; Start 10/07/18 at 14:30 Dextrose (D50w Syringe) 25 ml Q15M PRN IV DECREASED GLUCOSE; Start 10/07/18 at 14:30 Dextrose (D50w Syringe) 50 ml Q15M PRN IV DECREASED GLUCOSE; Start 10/07/18 at 14:30 Glucagon (Glucagen) 1 mg Q15M PRN IM DECREASED GLUCOSE; Start 10/07/18 at 14:30 Glucose (Glutose) 15 gm Q15M PRN BUCCAL DECREASED GLUCOSE; Start 10/07/18 at 14:30 Measles/Mumps/ Rubella Vaccine Live (Mmr Ii Vaccine) 0.5 ml ONCE ONCE SC* ; Start 10/09/18 at 09:00; Stop 10/09/18 at 09:01 Insulin Human NPH (Humulin N) 10 unit DAILY@20 SC ; Start 10/08/18 at 20:00; St atus UNV Insulin Human NPH (Humulin N) 4 unit ONCE ONCE SC ; Start 10/08/18 at 12:30; Stop 10/08/18 at 12:31; Status UNKEAGAN HODGSON MD Oct 08, 2018 12:21
[2018-10-08] MEDS ORDERED: NPH, HUMAN INSULIN ISOPHANE 3ML VIAL SC ONE (12:30)
--- NOTE | 2018-10-08 14:06 | QN ---
Documentation Comment No complaint Afebrile VSS Fundus firm Lochia scant PPD #1 Stable Continue present care RYANNE MOSS MD Oct 08, 2018 14:06
[2018-10-08] MEDS: HYDROCODONE/APAP (5/325) TAB PO PRN (18:03)
[2018-10-08] MEDS ORDERED: NPH, HUMAN INSULIN ISOPHANE 3ML VIAL SC SCH (20:00)
[2018-10-09] MEDS: HYDROCODONE/APAP (5/325) TAB PO PRN (00:27)
[2018-10-09] MEDS: IBUPROFEN 600 MG TAB PO SCH ×4 (00:27→18:12)
[2018-10-09 04:00] VITALS: BP 134/72; PULSE 64; RESP 18
[2018-10-09 07:30] VITALS: BP 114/76; PULSE 54; RESP 16
[2018-10-09] MEDS: metFORMIN 500 MG TAB PO SCH ×2 (08:48→18:13)
[2018-10-09] MEDS: ACCU-CHEK XX SCH ×5 (08:49→18:21)
[2018-10-09] MEDS ORDERED: DIPHTH/TET/ACEL PERTUSS (ADULT) 0.5 ML VIAL IM* ONE (09:00)
[2018-10-09] MEDS ORDERED: MEASLES,MUMPS,RUBELLA VACCINE INJ SC* ONE (09:00)
[2018-10-09] MEDS: SENNA/DOCUSATE NA (8.6MG/50MG) TAB PO SCH (09:58)
[2018-10-09] MEDS: WITCH HAZEL/GLYCERIN PAD PR PRN (14:51)
--- NOTE | 2018-10-09 15:33 | CONS ---
Assessment/Plan Assessment/Plan Problems: (1) Diabetes mellitus type 2 in obese Status: Chronic Comment: Excellent glycemic control. At this time the patient is stable for discharge as per primary recommendations Consultation Date/Type/Reason Admit Date/Time Oct 06, 2018 at 06:35 Initial Consult Date 10/07/18 Type of Consult Endocrine Reason for Consultation Diabetes mellitus type 2 pre-existing the Requesting Provider: RYANNE MOSS MD Date/Time of Note DATE: 10/09/18 TIME: 15:29 24 HR Interval Summary Free Text/Dictation Patient reports she is doing well and her sugar control is better. Constitutional: no complaints Exam/Review of Systems Exam Vitals Vital Signs Date Temp Pulse Resp B/P (MAP) Pulse Ox O2 O2 Flow FiO2 Time Delivery Rate 10/09/18 97.5 54 16 114/76 Room Air 07:30 (89) 10/07/18 95 05:00 Constitutional: alert, oriented Cardiovascular: regular rate and rhythm, nl pulses Gastrointestinal: soft, nl liver, spleen, non-tender Results Result Diagram: 10/08/18 0749 10/07/18 0137 Results 24hrs Laboratory Tests Test 10/08/18 15:37 10/08/18 17:55 10/08/18 20:15 10/09/18 08:45 Bedside Glucose 209 119 163 96 Test 10/09/18 11:24 10/09/18 12:21 10/09/18 14:45 Bedside Glucose 153 103 119 Medications Medication Current Medications Ibuprofen (Motrin) 600 mg Q6 PO Last administered on 10/09/18at 13:34; Admin Dose 600 MG; Start 10/07/18 at 06:00 Acetaminophen (Tylenol Tab) 650 mg Q4H PRN PO .PAIN 1-5; Start 10/07/18 at 04:00 Acetaminophen/ Hydrocodone Bitart ([place] (5/325)) 1 tab Q4H PRN PO .PAIN 1-5 Last administered on 10/09/18at 00:27; Admin Dose 1 TAB; Start 10/07/18 at 04:00 Senna/Docusate Sodium (Senokot-S) 1 tab BID PO Last administered on 10/09/18at 09:58; Admin Dose 1 TAB; Start 10/07/18 at 09:00 [place]/ Glycerin (Tucks Pads) 1 pad BEDSIDE MEDICATION PRN [place] .HEMORRHOID/EPISIOTOMY PAIN Last administered on 10/09/18at 14:51; Admin Dose 40 PAD; Start 10/07/18 at 04:00 Benzocaine (Dermoplast [place]) 1 spray BEDSIDE MEDICATION PRN TOP .HEMMORHOID/EPISIOTOMY PAIN Last administered on 10/07/18at 03:57; Admin Dose 56 SPRAY; Start 10/07/18 at 04:00 Dibucaine (Nupercainal) 1 applic BEDSIDE MEDICATION PRN TOP .HEMMORHOID/EPISIOTOMY; Start 10/07/18 at 04:00 Oxytocin/Lactated Ringer's 500 ml @ 0 mls/hr ONCE PRN IV .VAGINAL BLEEDING; Start 10/07/18 at 04:00 Methylergonovine Maleate (Methergine) 0.2 mg ONCE PRN IM .VAGINAL BLEEDING; Start 10/07/18 at 04:00 Carboprost Tromethamine (Hemabate) 250 mcg ONCE PRN IM .VAGINAL BLEEDING; Start 10/07/18 at 04:00 Misoprostol (Cytotec) 1,000 mcg ONCE PRN NE .VAGINAL BLEEDING; Start 10/07/18 at 04:00 Metformin HCl (Glucophage) 1,000 mg BID WITH MEALS PO Last administered on 10/09/18 08:48; Admin Dose 1,000 MG; Start 10/07/18 at 18:05 Diagnostic Test (Pha) (Accu-Chek) 1 ea AC MEALS XX Last administered on 10/09/18at 12:20; Admin Dose 1 EA; Start 10/07/18 at 17:35 Diagnostic Test (Pha) (Accu-Chek) 1 ea 2 HOURS AFTER MEALS XX Last administered on 10/09/18at 14:46; Admin Dose 1 EA; Start 10/07/18 at 20:05 Miscellaneous Information 1 ea NOTE XX ; Start 10/07/18 at 14:30 Glucose (Glutose) 15 gm Q15M PRN PO DECREASED GLUCOSE; Start 10/07/18 at 14:30 Glucose (Glutose) 22.5 gm Q15M PRN PO DECREASED GLUCOSE; Start 10/07/18 at 14:30 Dextrose (D50w Syringe) 25 ml Q15M PRN IV DECREASED GLUCOSE; Start 10/07/18 at 14:30 Dextrose (D50w Syringe) 50 ml Q15M PRN IV DECREASED GLUCOSE; Start 10/07/18 at 14:30 Glucagon (Glucagen) 1 mg Q15M PRN IM DECREASED GLUCOSE; Start 10/07/18 at 14:30 Glucose (Glutose) 15 gm Q15M PRN BUCCAL DECREASED GLUCOSE; Start 10/07/18 at 14:30 Insulin Human NPH (Humulin N) 10 unit DAILY@20 SC Last administered on 10/08/18at 20:20; Admin Dose 10 UNIT; Start 10/08/18 at 20:00 KEAGAN HERNANDEZ MD Oct 09, 2018 15:33
[2018-10-09 16:00] VITALS: BP 110/72; PULSE 56; RESP 16
--- NOTE | 2018-10-09 19:39 | DS ---
Date/Time of Note Date/Time of Note DATE: 10/09/18 TIME: 19:38 Obstetrical Discharge Record Final Diagnosis Final Diagnosis: delivered Vaginal Delivery Obstetrical Delivery: Spontaneous Complications Insulin Dependent Diabete Induction: Yes Rupture of Membranes: Yes Gestational Age at Rupture 36+ weeks Condition on Discharge Physical Assessment Voiding: Yes Bowel Movement: Yes Breast: Soft, non-tender, Filling Fundus: Firm Calf Tenderness: No Patient Condition: Stable RYANNE MOSS MD Oct 09, 2018 19:39
[2018-10-09 20:00] VITALS: BP 118/71; PULSE 69; RESP 19
--- NOTE | 2018-10-10 21:49 | DELSUM ---
Delivery Summary A-C Datetime Report Generated by CPN: 10/10/2018 21:49 DELIVERY PERSONNEL Operations Welder: Sarah Cross MATERNAL INFORMATION Delivery Anesthesia: Epidural Medications in Delivery: see EMAR Delivery QBL (ml): 500 Placenta Cultured: No Maternal Complications: Other Other Maternal Complications: PPROM, Type II DM on insulin and metformin LABOR SUMMARY EDC: 11/12/2018 00:00 No. Babies in Womb: 1 Attempted: No Labor Anesthesia: Epidural LABOR INFORMATION Reason for Induction: Not Applicable Onset of Labor: 10/06/2018 03:30 Complete Dilatation: 10/06/2018 23:20 Oxytocin: Augmentation Group B Beta Strep: Not Done Antibiotics # of Doses: 5 Antibiotics Time of Last Dose: 10/07/2018 00:03 Steroids Given: None Reason Steroids Not Administered: Not Applicable MEMBRANES Membranes Rupture Method: Artificial Rupture of Membranes: 10/06/2018 03:30 Length of Rupture (hr): 21.22 Amniotic Fluid Color: Particulate Meconium Amniotic Fluid Amount: Moderate Amniotic Fluid Odor: Normal STAGES OF LABOR Stage 1 hr: 19 Stage 1 min: 50 Stage 2 hr: 1 Stage 2 min: 23 Stage 3 hr: 0 Stage 3 min: 3 Total Time in Labor hr: 21 Total Time in Labor min: 16 VAGINAL DELIVERY Episiotomy: None Laceration Extension: Second Degree Laceration Type: Perineal Laceration Repair: Yes Initial Vag Sponge Count: 10+10 Final Vag Sponge Count: 20 Initial Vag Sharps Count: 1+2 Final Vag Sharps Count: 3 Sponge Count Correct: Yes Sharps Count Correct: Yes BABY A INFORMATION Delivery Date/Time: 10/07/2018 00:43 Method of Delivery: Vaginal Born in Route : No : N/A Forceps: N/A Vacuum Extraction: N/A Shoulder Dystocia : No SHOULDER DYSTOCIA BABY A Infant Delivery Date/Time: 10/07/2018 00:43 PRESENTATION/POSITION BABY A Presentation: Cephalic Cephalic Presentation: Vertex Breech Presentation: N/A PLACENTA INFORMATION BABY A Placenta Delivery Time : 10/07/2018 00:46 Placenta Method of Delivery: Spontaneous Placenta Status: Delivered SCORES BABY A Heart Rate 1 min: >100 bpm Resp Effort 1 min: Good Cry Reflex Irritability 1 min: Cough/Sneeze/Pulls Away Muscle Tone 1 min: Some Flexion of Extrem Color 1 min: Blue/Pale SCORE 1 MIN: 7 Heart Rate 5 min: >100 bpm Resp Effort 5 min: Good Cry Reflex Irritability 5 min: Cough/Sneeze/Pulls Away Muscle Tone 5 min: Active Motion Color 5 min: Blue/Pale SCORE 5 MIN: 8 INFORMATION BABY A Gestational Age at Delivery: 34.6 Gestational Status: Late - 34- 36.6 Weeks Infant Outcome : Liveborn Infant Condition : Stable Infant Sex: Female IDENTIFICATION/MEDS BABY A ID Band Number: [id number] ID Band Location: Right Leg; Left Arm Sensor Applied: No Vitamin K Given : Not Given Erythromycin Given: Not Given WEIGHT/LENGTH BABY A Infant Birthweight (gm): 3195 Weight (lb): 7 Weight (oz): 1 Infant Length (in): 19.50 Infant Length (cm): 49.53 CORD INFORMATION BABY A No. Cord Vessels: 3 Nuchal Cord : N/A Cord Blood Taken: Yes Suction: Mouth; Nose ASSESSMENT BABY A Complications: Decreased Variability Physical Findings at Delivery: Within Normal Limits Infant Respirations: Appears Normal Undraped Artist Model/ALS Called : Yes Care By: Byron Montes De Oca and Mandi Robbins RN Transferred To: NICU
== END 2018-10-09 21:40 | disposition home or self-care (01) | DRG 807 ==
LOC: OBT 05:49 → L-D 05:49 → OBT 06:35 → L-D 06:35 → PP1 10-07 03:15
PROVIDERS: ADMIT Obstetrics & Gynecology; ATTEND Obstetrics & Gynecology
PROC: 10E0XZZ Delivery of Products of Conception, External Approach (ICD-10-PCS; principal; 2018-10-07)
PROC: 0KQM0ZZ Repair Perineum Muscle, Open Approach (ICD-10-PCS; 2018-10-07)
DX: O60.13X0 Preterm labor second trimester with preterm delivery third trimester, not applicable or unspecified (principal); O70.1 Second degree perineal laceration during delivery; O24.429 Gestational diabetes mellitus in childbirth, unspecified control; Z3A.35 35 weeks gestation of pregnancy; Z37.0 Single live birth
CPT/HCPCS: 62322; 76815; 76818; 80053; 81001; 81003; 82947; 82962; 83735; 84560; 85025; 85384; 85610; 85730; 86592; 86850; 86900; 86901; 87340; 88307; 99464; G0463; J0290; J1815; J2210; J2405; J2590; J3010; J3475; J7120; J7121